=== PATIENT | female | born 1995 | race Caucasian/White ===

== ENCOUNTER 2023-04-03 13:44 | Emergency (ER) | payer OTHER, MEDICAID, SELFPAY ==
[2023-04-03] VITALS (101 sets, daily range): BP systolic 105–160; BP diastolic 56–83; PULSE 96–158; RESP 0–49; TEMP 37.2–37.5; O2SAT 81–99; BMI 50.1
[2023-04-03] MEDS: LORazepam 2 MG/ML INJ (13:55)
--- NOTE | 2023-04-03 13:55 | PC.NURSE ---
Addendum entered by Bryon Garcia R.N. 04/03/23 17:28: Pt arguing with provider and yells Let me up, I just need to walk around because of my lungs. I have done this before, let me walk around and i'll be better! Pt screamed multiple foul words. Original Note: EMS presents with patient who is confused, tachycardic, having previously been restrained during transport. Pt oxygen dropped to 82% room air after removing her oxygen. Patient is refusing to wear a nonrebreather, her face is purple and she rips off her mask. Provider at bedside and informed Pt that she cannot make appropriate decisions for herself regarding her oxygen at this time. Patient was combative requiring 5 staff members to restrain her in order to apply a non rebreather. Patients o2 increased to 92% on 15L nonrebreather.
--- NOTE | 2023-04-03 13:55 | PC.NURSE ---
Patient has bite gamez on her tongue with small amount of bleeding which is now controlled.
[2023-04-03] MEDS: LORazepam 2 MG/ML INJ 1 MG IV (13:59)
--- NOTE | 2023-04-03 13:59 | DI.RAD.S_ITS ---
PROCEDURE: XR CHEST 1V INDICATIONS: hypoxia TECHNIQUE: One view of the chest was acquired. COMPARISON: None. FINDINGS: Surgical changes and devices: None. Lungs and pleura: Diffuse airspace opacities of the bilateral hemithoraces. No pneumothorax or substantial pleural effusion. Mediastinum: Mediastinal contours appear normal. Heart size is normal. Bones and chest wall: No suspicious bony lesions. Overlying soft tissues appear unremarkable. IMPRESSION: Diffuse ill-defined airspace opacities of the bilateral hemithoraces which may represent pulmonary edema, pulmonary hemorrhage, or infectious/inflammatory process. Dictated by: Omar Mcintosh M.D. on 04/03/2023 at 13:30 Approved by: Omar Mcintosh M.D. on 04/03/2023 at 13:31
--- NOTE | 2023-04-03 13:59 | ED.SEIZURE ---
HPI - Seizure <DO Maximo Wagner Last Filed: 04/06/23 07:53> General Chief Complaint: Seizure Stated Complaint: 3 seizure last 24 hours Time Seen by Provider: 04/03/23 13:59 History of Present Illness HPI Narrative: Patient is a 27-year-old female history of connective tissue disorder, seizure disorder but not on any seizure medications presenting today with seizures. Mom reports that she had a seizure last night. 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 She is been complaining of some allergy like symptoms some chest congestion but no fever chills. Today she had seizure which mom did not witness but she did call her mom afterwards mom came over mom witnessed seizure lasting about 2 minutes. She reports stiffness in the extremities foaming at the mouth unresponsiveness. She says she was a little confused for about 15 minutes afterwards. EMS arrived she was more awake alert and talking. Patient seem to be at her baseline mental status for about 40 minutes and then she had another witnessed seizure by EMS. She required 5 mg total of Versed IM which did stop her seizure. Now in the ED she is quite combative but obviously hypoxic and. O2 is 78% is ripping off oxygen. Related Data Home Medications Medication Instructions Recorded Confirmed albuterol sulfate 90 mcg/actuation 2 puff inhalation Q6H PRN 06/02/20 06/02/20 aerosol inhaler Previous Rx's Medication Instructions Recorded silver sulfadiazine 1 % topical 1 applictn topical BID PRN wound 06/02/20 cream (Silvadene) healing #25 grams levetiracetam 1,000 mg tablet 1,000 mg PO BID #60 tabs 04/04/23 (Keppra) levofloxacin 750 mg tablet 750 mg PO DAILY 4 days #4 tabs 04/04/23 Allergies Allergy/AdvReac Type Severity Reaction Status Date / Time cefuroxime [From Ceftin] Allergy Intermediate unknown, Verified 06/02/20 10:09 happened as a small child Sulfa (Sulfonamide AdvReac Mild GI upset Verified 06/02/20 10:09 Antibiotics) Review of Systems <DO Maximo Wagner Last Filed: 04/06/23 07:53> Review of Systems ROS Unobtainable: All systems reviewed & are unremarkable except as noted in HPI and below Patient History <DO Maximo Wagner Last Filed: 04/06/23 07:53> Social History Smoking Status: Former smoker Smoking Status: Former smoker Exam <Keyonna Zelaya DO - Last Filed: 04/06/23 07:53> Initial Vital Signs Initial Vital Signs: Vital Signs Pulse Rate 122 H 04/03/23 14:05 Pulse Oximetry 95 04/03/23 14:05 Oxygen Delivery Method Non -Rebreather 04/03/23 14:05 Oxygen Flow Rate 15 04/03/23 14:05 GENERAL: Morbidly obese 27-year-old female combative, cyanotic in the face HEENT: Head atraumatic,EOMI, pupils reactive, face symmetric, moist mucous membranes CARDIOVASCULAR: Regular rate and rhythm without murmurs, rubs or gallops. RESPIRATORY: Decreased breath sounds bilaterally ABDOMEN: Soft, nontender. Normoactive bowel sounds all 4 quadrants. No guarding or rebound. EXTREMITIES: Normal range of motion, no clubbing or edema. Neurovascularly intact NEUROLOGICAL: Alert and oriented x2, moving all extremities SKIN: Warm, dry, no laceration, no petechiae, no rashes or lesions. <Vick Jacinto DO - Last Filed: 04/04/23 07:48> Initial Vital Signs Initial Vital Signs: Vital Signs Pulse Rate 122 H 04/03/23 14:05 Pulse Oximetry 95 04/03/23 14:05 Oxygen Delivery Method Non -Rebreather 04/03/23 14:05 Oxygen Flow Rate 15 04/03/23 14:05 Course <Keyonna Zelaya DO - Last Filed: 04/06/23 07:53> Orders Ordered: Discontinued Medications Etomidate (Etomidate 2 Mg/Ml 10 Ml Vial) 15 mg IV NOW ONE Stop: 04/03/23 14:33 Last Admin: 04/03/23 18:25 Dose: Not Given Documented By: JASON Sodium Chloride (Normal Saline 0.9%) 1,000 mls @ 150 mls/hr IV CONT KAROL Last Infusion: 04/03/23 17:12 Dose: 0 mls/hr Documented By: Infusion: 04/03/23 15:34 Dose: 999 mls/hr Documented By: Admin: 04/03/23 14:10 Dose: 150 mls/hr Documented By: EDWIN Propofol (Propofol) 1,000 mg in 100 mls @ 4.096 mls/hr IV TITRATE KAROL; Protocol Last Admin: 04/03/23 18:26 Dose: Not Given Documented By: SPF Fentanyl 1,000 mcg/ Dextrose 250 mls @ 23.893 mls/hr IV TITRATE KAROL; Protocol Last Admin: 04/03/23 18:26 Dose: Not Given Documented By: SPF Piperacillin Sod/Tazobactam (Sod 4.5 gm/ Sodium Chloride) 100 mls @ 200 mls/hr IV NOW ONE Stop: 04/03/23 15:16 Last Infusion: 04/03/23 16:15 Dose: 0 mls/hr Documented By: Infusion: 04/03/23 16:05 Dose: 200 mls/hr Documented By: Infusion: 04/03/23 15:37 Dose: 0 mls/hr Documented By: [facility] Admin: 04/03/23 15:37 Dose: 200 mls/hr Documented By: SPF Vancomycin HCl/Dextrose (Vancomycin) 2,000 mg in 400 mls @ 200 mls/hr IV NOW ONE Stop: 04/03/23 17:16 Last Infusion: 04/03/23 19:15 Dose: 0 mls/hr Documented By: Infusion: 04/03/23 19:01 Dose: 200 mls/hr Documented By: Admin: 04/03/23 16:45 Dose: 200 mls/hr Documented By: SPF Sodium Chloride (Normal Saline 0.9%) 1,000 mls @ 1,000 mls/hr IV BOLUS ONE Stop: 04/03/23 16:20 Last Infusion: 04/03/23 23:55 Dose: 0 mls/hr Documented By: Admin: 04/03/23 17:13 Dose: 150 mls/hr Documented By: SPF Levetiracetam 1,000 mg/ Sodium (Chloride) 110 mls @ 440 mls/hr IV NOW ONE Stop: 04/03/23 18:27 Last Infusion: 04/03/23 19:33 Dose: 0 mls/hr Documented By: Admin: 04/03/23 19:07 Dose: 440 mls/hr Documented By: SPF Levetiracetam 1,000 mg/ Sodium (Chloride) 110 mls @ 440 mls/hr IV BID [facility] Levetiracetam (Levetiracetam 250 Mg Tablet) 1,000 mg PO NOW ONE Stop: 04/04/23 06:25 Last Admin: 04/04/23 06:37 Dose: 1,000 mg Documented By: GC Levofloxacin (Levofloxacin 250 Mg Tablet) 500 mg PO NOW ONE Stop: 04/04/23 09:01 Last Admin: 04/04/23 07:50 Dose: 500 mg Documented By: NR Lorazepam (Lorazepam 2 Mg/Ml Inj) 1 mg IV NOW ONE Stop: 04/03/23 14:00 Last Admin: 04/03/23 13:59 Dose: 1 mg Documented By: RLS Lorazepam (Lorazepam 2 Mg/Ml Inj) 1 mg IV NOW ONE Stop: 04/03/23 14:22 Last Admin: 04/03/23 14:36 Dose: Not Given Documented By: RLS Lorazepam (Lorazepam 2 Mg/Ml Inj) 2 mg IV NOW ONE Stop: 04/03/23 18:35 Last Admin: 04/03/23 18:40 Dose: 2 mg Documented By: SPF Succinylcholine Chloride (Succinylcholine 200 Mg/10 Ml Vial) 70 mg IV NOW ONE Stop: 04/03/23 14:35 Last Admin: 04/03/23 18:25 Dose: Not Given Documented By: SPF Vital Signs Vital signs: Vital Signs - 8 hr 04/04/23 01:13 04/04/23 00:00 04/04/23 00:00 Pulse Rate 101 H Respiratory Rate 23 Blood Pressure 120/76 Pulse Oximetry 96 Oxygen Delivery Method Nasal Cannula High Flow Nasal Cannula Oxygen Flow Rate 3 40 Fraction of Inspired Oxygen 04/04/23 00:30 04/04/23 01:00 04/04/23 01:30 Pulse Rate 102 H 106 H 109 H Respiratory Rate 27 H 34 H 27 H Blood Pressure Pulse Oximetry 95 92 93 Oxygen Delivery Method Nasal Cannula Oxygen Flow Rate 2 Fraction of Inspired Oxygen 04/04/23 02:00 04/04/23 02:00 04/04/23 02:30 Pulse Rate 100 H 101 H Respiratory Rate 34 H 35 H Blood Pressure 134/85 Pulse Oximetry 92 93 Oxygen Delivery Method Nasal Cannula Oxygen Flow Rate 2 Fraction of Inspired Oxygen 04/04/23 03:00 04/04/23 03:30 04/04/23 04:00 Pulse Rate 106 H 99 H 106 H Respiratory Rate 31 H 30 H 35 H Blood Pressure Pulse Oximetry 95 92 92 Oxygen Delivery Method Nasal Cannula Nasal Cannula Nasal Cannula Oxygen Flow Rate 2 2 2 Fraction of Inspired Oxygen 04/04/23 04:30 04/04/23 05:00 04/04/23 05:30 Pulse Rate 105 H 104 H 107 H Respiratory Rate 32 H 32 H 21 Blood Pressure Pulse Oximetry 94 92 95 Oxygen Delivery Method Nasal Cannula Nasal Cannula Nasal Cannula Oxygen Flow Rate 2 2 2 Fraction of Inspired Oxygen 04/04/23 06:25 Pulse Rate 100 H Respiratory Rate 28 H Blood Pressure Pulse Oximetry 92 Oxygen Delivery Method Nasal Cannula Oxygen Flow Rate 2 Fraction of Inspired Oxygen 28 <Vick Jacinto DO - Last Filed: 04/04/23 07:48> Orders Ordered: Discontinued Medications Etomidate (Etomidate 2 Mg/Ml 10 Ml Vial) 15 mg IV NOW ONE Stop: 04/03/23 14:33 Last Admin: 04/03/23 18:25 Dose: Not Given Documented By: SPF Sodium Chloride (Normal Saline 0.9%) 1,000 mls @ 150 mls/hr IV CONT KAROL Last Infusion: 04/03/23 17:12 Dose: 0 mls/hr Documented By: Infusion: 04/03/23 15:34 Dose: 999 mls/hr Documented By: [facility] Admin: 04/03/23 14:10 Dose: 150 mls/hr Documented By: EDWIN Propofol (Propofol) 1,000 mg in 100 mls @ 4.096 mls/hr IV TITRATE KAROL; Protocol Last Admin: 04/03/23 18:26 Dose: Not Given Documented By: SPF Fentanyl 1,000 mcg/ Dextrose 250 mls @ 23.893 mls/hr IV TITRATE KAROL; Protocol Last Admin: 04/03/23 18:26 Dose: Not Given Documented By: SPF Piperacillin Sod/Tazobactam (Sod 4.5 gm/ Sodium Chloride) 100 mls @ 200 mls/hr IV NOW ONE Stop: 04/03/23 15:16 Last Infusion: 04/03/23 16:15 Dose: 0 mls/hr Documented By: Infusion: 04/03/23 16:05 Dose: 200 mls/hr Documented By: Infusion: 04/03/23 15:37 Dose: 0 mls/hr Documented By: [facility] Admin: 04/03/23 15:37 Dose: 200 mls/hr Documented By: SPF Vancomycin HCl/Dextrose (Vancomycin) 2,000 mg in 400 mls @ 200 mls/hr IV NOW ONE Stop: 04/03/23 17:16 Last Infusion: 04/03/23 19:15 Dose: 0 mls/hr Documented By: Infusion: 04/03/23 19:01 Dose: 200 mls/hr Documented By: Admin: 04/03/23 16:45 Dose: 200 mls/hr Documented By: SPF Sodium Chloride (Normal Saline 0.9%) 1,000 mls @ 1,000 mls/hr IV BOLUS ONE Stop: 04/03/23 16:20 Last Infusion: 04/03/23 23:55 Dose: 0 mls/hr Documented By: Admin: 04/03/23 17:13 Dose: 150 mls/hr Documented By: SPF Levetiracetam 1,000 mg/ Sodium (Chloride) 110 mls @ 440 mls/hr IV NOW ONE Stop: 04/03/23 18:27 Last Infusion: 04/03/23 19:33 Dose: 0 mls/hr Documented By: Admin: 04/03/23 19:07 Dose: 440 mls/hr Documented By: SPF Levetiracetam 1,000 mg/ Sodium (Chloride) 110 mls @ 440 mls/hr IV BID [facility] Levetiracetam (Levetiracetam 250 Mg Tablet) 1,000 mg PO NOW ONE Stop: 04/04/23 06:25 Last Admin: 04/04/23 06:37 Dose: 1,000 mg Documented By: GC Levofloxacin (Levofloxacin 250 Mg Tablet) 500 mg PO NOW ONE Stop: 04/04/23 09:01 Last Admin: 04/04/23 07:50 Dose: 500 mg Documented By: NR Lorazepam (Lorazepam 2 Mg/Ml Inj) 1 mg IV NOW ONE Stop: 04/03/23 14:00 Last Admin: 04/03/23 13:59 Dose: 1 mg Documented By: RLS Lorazepam (Lorazepam 2 Mg/Ml Inj) 1 mg IV NOW ONE Stop: 04/03/23 14:22 Last Admin: 04/03/23 14:36 Dose: Not Given Documented By: RLS Lorazepam (Lorazepam 2 Mg/Ml Inj) 2 mg IV NOW ONE Stop: 04/03/23 18:35 Last Admin: 04/03/23 18:40 Dose: 2 mg Documented By: SPF Succinylcholine Chloride (Succinylcholine 200 Mg/10 Ml Vial) 70 mg IV NOW ONE Stop: 04/03/23 14:35 Last Admin: 04/03/23 18:25 Dose: Not Given Documented By: SPF Vital Signs Vital signs: Vital Signs - 8 hr 04/04/23 01:13 04/04/23 00:00 04/04/23 00:00 Pulse Rate 101 H Respiratory Rate 23 Blood Pressure 120/76 Pulse Oximetry 96 Oxygen Delivery Method Nasal Cannula High Flow Nasal Cannula Oxygen Flow Rate 3 40 Fraction of Inspired Oxygen 04/04/23 00:30 04/04/23 01:00 04/04/23 01:30 Pulse Rate 102 H 106 H 109 H Respiratory Rate 27 H 34 H 27 H Blood Pressure Pulse Oximetry 95 92 93 Oxygen Delivery Method Nasal Cannula Oxygen Flow Rate 2 Fraction of Inspired Oxygen 04/04/23 02:00 04/04/23 02:00 04/04/23 02:30 Pulse Rate 100 H 101 H Respiratory Rate 34 H 35 H Blood Pressure 134/85 Pulse Oximetry 92 93 Oxygen Delivery Method Nasal Cannula Oxygen Flow Rate 2 Fraction of Inspired Oxygen 04/04/23 03:00 04/04/23 03:30 04/04/23 04:00 Pulse Rate 106 H 99 H 106 H Respiratory Rate 31 H 30 H 35 H Blood Pressure Pulse Oximetry 95 92 92 Oxygen Delivery Method Nasal Cannula Nasal Cannula Nasal Cannula Oxygen Flow Rate 2 2 2 Fraction of Inspired Oxygen 04/04/23 04:30 04/04/23 05:00 04/04/23 05:30 Pulse Rate 105 H 104 H 107 H Respiratory Rate 32 H 32 H 21 Blood Pressure Pulse Oximetry 94 92 95 Oxygen Delivery Method Nasal Cannula Nasal Cannula Nasal Cannula Oxygen Flow Rate 2 2 2 Fraction of Inspired Oxygen 04/04/23 06:25 Pulse Rate 100 H Respiratory Rate 28 H Blood Pressure Pulse Oximetry 92 Oxygen Delivery Method Nasal Cannula Oxygen Flow Rate 2 Fraction of Inspired Oxygen 28 MDM - Seizure <Keyonna Zelaya, - Last Filed: 04/06/23 07:53> Lab Data 04/03/23 14:02 04/03/23 14:02 Labs: Lab Results 04/03/23 04/03/23 04/03/23 Range/Units 14:02 14:02 14:02 WBC (4.5-11.0) X10^3/uL RBC (4.0-5.2) X10^6/uL Hgb (12.0-16.0) g/dL Hct (36-46) % MCV (80-100) fL MCH (26-34) PG MCHC (30-36) % RDW (11.6-14.8) % Plt Count (150-400) X10^3/uL Neut % (Auto) (50-75) % Lymph % (Auto) (25-40) % [place] % (Auto) (3-14) % Eos % (Auto) (2-4) % Baso % (Auto) (0-2) % Neut # (Auto) (8537-3314) /uL Lymph # (Auto) (2719-3059) /uL [place] # (Auto) (0-900) /uL Eos # (Auto) (0-450) /uL Baso # (Auto) (0-100) /uL PT 13.9 H (10.1-12.7) SECONDS INR 1.2 (0.9-1.3) APTT 29 (26-36) SECONDS ABG pH (7.35-7.45) ABG pCO2 (35-45) mmHg ABG pO2 (80-100) mmHg ABG HCO3 (23-27) mmol/L ABG Total CO2 (23-27) mmol/L ABG O2 Saturation (95-100) % ABG Base Excess (-2-3) mmol/L FiO2 Sodium (137-145) mmol/L Potassium (3.4-5.1) mmol/L Chloride (98-107) mmol/L Carbon Dioxide (22-32) mmol/L BUN (7-17) mg/dL Creatinine (0.52-1.04) mg/dL Estimated GFR (>60) mL/min BUN/Creatinine Ratio (6-22) Glucose (70-100) mg/dL Lactate 6.5 H* (0.7-2.1) mmol/L Calcium (8.4-10.2) mg/dL Total Bilirubin (0.2-1.3) mg/dL AST (14-36) IU/L ALT (<35) IU/L Alkaline Phosphatase (38-126) U/L Total Creatine Kinase (30-135) U/L Troponin I (0.01-0.034) ng/mL NT-Pro-B Natriuret Pep (<125) pg/mL Total Protein (6.3-8.2) g/dL Albumin (3.5-5.0) g/dL Globulin (1.7-4.1) g/dL Albumin/Globulin Ratio (1.0-2.8) Lipase (23-300) U/L Procalcitonin < 0.03 (<0.5) ng/mL Prolactin 107.4 H (3.0-18.6) ng/mL Serum , Qual (Negative) Urine Color Urine Appearance Urine pH (4.5-8.0) Ur Specific [place] (1.000-1.035) Urine Protein (Negative) Urine Glucose (UA) (Negative) g/dL Urine Ketones (NEGATIVE) Urine Occult Blood (Negative) Urine Nitrate (Negative) Urine Bilirubin (NEGATIVE) Urine Urobilinogen (0.2) E.U./dL Ur Leukocyte Esterase (NEGATIVE) Urine RBC (0-5/HPF) Urine WBC (0-5/HPF) Ur Squamous Epith Cells (0-5/HPF) Uric Acid Crystals (None) Urine Bacteria (None) Ur Culture Indicated? U Opiates 300ng/mL cut (Negative) Ur Oxycodone Screen (Negative) Urine Methadone Screen (Negative) Ur Barbiturates Screen (Negative) U Tricyclic Antidepress (Negative) Ur Phencyclidine Scrn (Negative) Ur Amphetamines Screen (Negative) U Methamphetamines Scrn (Negative) Ur MDMA Scrn (Ecstasy) (Negative) U Benzodiazepines Scrn (Negative) Urine Cocaine Screen (Negative) U Marijuana (THC) Screen (Negative) Chlamy pneumoniae PCR (Not Detect) Adenovirus (PCR) (Not Detect) B. pertussis DNA (PCR) (Not Detecte) B.parapertussis DNA PCR (Not Detecte) Coronavirus OC43 (PCR) (Not Detect) Coronavirus HKU1 (PCR) (Not Detect) Coronavirus 229E (PCR) (Not Detect) SARS-CoV-2 (PCR) (Not Detecte) Coronavirus NL63 (PCR) (Not Detect) Human Metapneumovir PCR (Not Detect) Influenza Type A (PCR) (Not Detect) Influenza Type B (PCR) (Not Detect) M. pneumoniae (PCR) (Not Detect) Parainfluenza 1 (PCR) (Not Detect) Parainfluenza 2 (PCR) (Not Detect) Parainfluenza 3 (PCR) (Not Detect) Parainfluenza 4 (PCR) (Not Detect) RSV (PCR) (Not Detect) Entero/Rhino (PCR) (Not Detect) 04/03/23 04/03/23 04/03/23 Range/Units 14:02 14:02 14:02 WBC 24.7 H (4.5-11.0) X10^3/uL RBC 5.03 (4.0-5.2) X10^6/uL Hgb 14.9 (12.0-16.0) g/dL Hct 44.1 (36-46) % MCV 87.6 (80-100) fL MCH 29.6 (26-34) PG MCHC 33.8 (30-36) % RDW 13.0 (11.6-14.8) % Plt Count 342 (150-400) X10^3/uL Neut % (Auto) 90.2 H (50-75) % Lymph % (Auto) 4.6 L (25-40) % [place] % (Auto) 4.8 (3-14) % Eos % (Auto) 0.2 L (2-4) % Baso % (Auto) 0.2 (0-2) % Neut # (Auto) 96723 H (1163-0626) /uL Lymph # (Auto) 1100 (3120-9559) /uL [place] # (Auto) 1200 H (0-900) /uL Eos # (Auto) 0 (0-450) /uL Baso # (Auto) 100 (0-100) /uL PT (10.1-12.7) SECONDS INR (0.9-1.3) APTT (26-36) SECONDS ABG pH (7.35-7.45) ABG pCO2 (35-45) mmHg ABG pO2 (80-100) mmHg ABG HCO3 (23-27) mmol/L ABG Total CO2 (23-27) mmol/L ABG O2 Saturation (95-100) % ABG Base Excess (-2-3) mmol/L FiO2 Sodium 137 (137-145) mmol/L Potassium 3.7 (3.4-5.1) mmol/L Chloride 104 (98-107) mmol/L Carbon Dioxide 16 L (22-32) mmol/L BUN 13 (7-17) mg/dL Creatinine 0.68 (0.52-1.04) mg/dL Estimated GFR > 60 (>60) mL/min BUN/Creatinine Ratio 19.1 (6-22) Glucose 164 H (70-100) mg/dL Lactate (0.7-2.1) mmol/L Calcium 8.7 (8.4-10.2) mg/dL Total Bilirubin 0.3 (0.2-1.3) mg/dL AST 27 (14-36) IU/L ALT 30 (<35) IU/L Alkaline Phosphatase 81 (38-126) U/L Total Creatine Kinase 162 H (30-135) U/L Troponin I 0.050 H (0.01-0.034) ng/mL NT-Pro-B Natriuret Pep (<125) pg/mL Total Protein 7.6 (6.3-8.2) g/dL Albumin 4.3 (3.5-5.0) g/dL Globulin 3.3 (1.7-4.1) g/dL Albumin/Globulin Ratio 1.3 (1.0-2.8) Lipase 68 (23-300) U/L Procalcitonin (<0.5) ng/mL Prolactin (3.0-18.6) ng/mL Serum , Qual Negative (Negative) Urine Color Urine Appearance Urine pH (4.5-8.0) Ur Specific [place] (1.000-1.035) Urine Protein (Negative) Urine Glucose (UA) (Negative) g/dL Urine Ketones (NEGATIVE) Urine Occult Blood (Negative) Urine Nitrate (Negative) Urine Bilirubin (NEGATIVE) Urine Urobilinogen (0.2) E.U./dL Ur Leukocyte Esterase (NEGATIVE) Urine RBC (0-5/HPF) Urine WBC (0-5/HPF) Ur Squamous Epith Cells (0-5/HPF) Uric Acid Crystals (None) Urine Bacteria (None) Ur Culture Indicated? U Opiates 300ng/mL cut (Negative) Ur Oxycodone Screen (Negative) Urine Methadone Screen (Negative) Ur Barbiturates Screen (Negative) U Tricyclic Antidepress (Negative) Ur Phencyclidine Scrn (Negative) Ur Amphetamines Screen (Negative) U Methamphetamines Scrn (Negative) Ur MDMA Scrn (Ecstasy) (Negative) U Benzodiazepines Scrn (Negative) Urine Cocaine Screen (Negative) U Marijuana (THC) Screen (Negative) Chlamy pneumoniae PCR (Not Detect) Adenovirus (PCR) (Not Detect) B. pertussis DNA (PCR) (Not Detecte) B.parapertussis DNA PCR (Not Detecte) Coronavirus OC43 (PCR) (Not Detect) Coronavirus HKU1 (PCR) (Not Detect) Coronavirus 229E (PCR) (Not Detect) SARS-CoV-2 (PCR) (Not Detecte) Coronavirus NL63 (PCR) (Not Detect) Human Metapneumovir PCR (Not Detect) Influenza Type A (PCR) (Not Detect) Influenza Type B (PCR) (Not Detect) M. pneumoniae (PCR) (Not Detect) Parainfluenza 1 (PCR) (Not Detect) Parainfluenza 2 (PCR) (Not Detect) Parainfluenza 3 (PCR) (Not Detect) Parainfluenza 4 (PCR) (Not Detect) RSV (PCR) (Not Detect) Entero/Rhino (PCR) (Not Detect) 04/03/23 04/03/23 04/03/23 Range/Units 14:02 14:02 14:45 WBC (4.5-11.0) X10^3/uL RBC (4.0-5.2) X10^6/uL Hgb (12.0-16.0) g/dL Hct (36-46) % MCV (80-100) fL MCH (26-34) PG MCHC (30-36) % RDW (11.6-14.8) % Plt Count (150-400) X10^3/uL Neut % (Auto) (50-75) % Lymph % (Auto) (25-40) % [place] % (Auto) (3-14) % Eos % (Auto) (2-4) % Baso % (Auto) (0-2) % Neut # (Auto) (9367-5914) /uL Lymph # (Auto) (0401-0729) /uL [place] # (Auto) (0-900) /uL Eos # (Auto) (0-450) /uL Baso # (Auto) (0-100) /uL PT (10.1-12.7) SECONDS INR (0.9-1.3) APTT (26-36) SECONDS ABG pH 7.36 (7.35-7.45) ABG pCO2 38.0 (35-45) mmHg ABG pO2 67 L (80-100) mmHg ABG HCO3 21 L (23-27) mmol/L ABG Total CO2 22 L (23-27) mmol/L ABG O2 Saturation 92 L (95-100) % ABG Base Excess -4.0 L (-2-3) mmol/L FiO2 100 Sodium (137-145) mmol/L Potassium (3.4-5.1) mmol/L Chloride (98-107) mmol/L Carbon Dioxide (22-32) mmol/L BUN (7-17) mg/dL Creatinine (0.52-1.04) mg/dL Estimated GFR (>60) mL/min BUN/Creatinine Ratio (6-22) Glucose (70-100) mg/dL Lactate (0.7-2.1) mmol/L Calcium (8.4-10.2) mg/dL Total Bilirubin (0.2-1.3) mg/dL AST (14-36) IU/L ALT (<35) IU/L Alkaline Phosphatase (38-126) U/L Total Creatine Kinase (30-135) U/L Troponin I (0.01-0.034) ng/mL NT-Pro-B Natriuret Pep 170 H (<125) pg/mL Total Protein (6.3-8.2) g/dL Albumin (3.5-5.0) g/dL Globulin (1.7-4.1) g/dL Albumin/Globulin Ratio (1.0-2.8) Lipase (23-300) U/L Procalcitonin (<0.5) ng/mL Prolactin (3.0-18.6) ng/mL Serum , Qual (Negative) Urine Color Urine Appearance Urine pH (4.5-8.0) Ur Specific [place] (1.000-1.035) Urine Protein (Negative) Urine Glucose (UA) (Negative) g/dL Urine Ketones (NEGATIVE) Urine Occult Blood (Negative) Urine Nitrate (Negative) Urine Bilirubin (NEGATIVE) Urine Urobilinogen (0.2) E.U./dL Ur Leukocyte Esterase (NEGATIVE) Urine RBC (0-5/HPF) Urine WBC (0-5/HPF) Ur Squamous Epith Cells (0-5/HPF) Uric Acid Crystals (None) Urine Bacteria (None) Ur Culture Indicated? U Opiates 300ng/mL cut (Negative) Ur Oxycodone Screen (Negative) Urine Methadone Screen (Negative) Ur Barbiturates Screen (Negative) U Tricyclic Antidepress (Negative) Ur Phencyclidine Scrn (Negative) Ur Amphetamines Screen (Negative) U Methamphetamines Scrn (Negative) Ur MDMA Scrn (Ecstasy) (Negative) U Benzodiazepines Scrn (Negative) Urine Cocaine Screen (Negative) U Marijuana (THC) Screen (Negative) Chlamy pneumoniae PCR Not detected (Not Detect) Adenovirus (PCR) Not detected (Not Detect) B. pertussis DNA (PCR) Not detected (Not Detecte) B.parapertussis DNA PCR Not detected (Not Detecte) Coronavirus OC43 (PCR) Not detected (Not Detect) Coronavirus HKU1 (PCR) Not detected (Not Detect) Coronavirus 229E (PCR) Not detected (Not Detect) SARS-CoV-2 (PCR) Not detected (Not Detecte) Coronavirus NL63 (PCR) Not detected (Not Detect) Human Metapneumovir PCR Not detected (Not Detect) Influenza Type A (PCR) Not detected (Not Detect) Influenza Type B (PCR) Not detected (Not Detect) M. pneumoniae (PCR) Not detected (Not Detect) Parainfluenza 1 (PCR) Not detected (Not Detect) Parainfluenza 2 (PCR) Not detected (Not Detect) Parainfluenza 3 (PCR) Not detected (Not Detect) Parainfluenza 4 (PCR) Not detected (Not Detect) RSV (PCR) Not detected (Not Detect) Entero/Rhino (PCR) Not detected (Not Detect) 04/03/23 04/03/23 04/03/23 Range/Units 16:41 18:39 18:39 WBC (4.5-11.0) X10^3/uL RBC (4.0-5.2) X10^6/uL Hgb (12.0-16.0) g/dL Hct (36-46) % MCV (80-100) fL MCH (26-34) PG MCHC (30-36) % RDW (11.6-14.8) % Plt Count (150-400) X10^3/uL Neut % (Auto) (50-75) % Lymph % (Auto) (25-40) % [place] % (Auto) (3-14) % Eos % (Auto) (2-4) % Baso % (Auto) (0-2) % Neut # (Auto) (8889-1164) /uL Lymph # (Auto) (6781-3642) /uL [place] # (Auto) (0-900) /uL Eos # (Auto) (0-450) /uL Baso # (Auto) (0-100) /uL PT (10.1-12.7) SECONDS INR (0.9-1.3) APTT (26-36) SECONDS ABG pH (7.35-7.45) ABG pCO2 (35-45) mmHg ABG pO2 (80-100) mmHg ABG HCO3 (23-27) mmol/L ABG Total CO2 (23-27) mmol/L ABG O2 Saturation (95-100) % ABG Base Excess (-2-3) mmol/L FiO2 Sodium (137-145) mmol/L Potassium (3.4-5.1) mmol/L Chloride (98-107) mmol/L Carbon Dioxide (22-32) mmol/L BUN (7-17) mg/dL Creatinine (0.52-1.04) mg/dL Estimated GFR (>60) mL/min BUN/Creatinine Ratio (6-22) Glucose (70-100) mg/dL Lactate 0.8 (0.7-2.1) mmol/L Calcium (8.4-10.2) mg/dL Total Bilirubin (0.2-1.3) mg/dL AST (14-36) IU/L ALT (<35) IU/L Alkaline Phosphatase (38-126) U/L Total Creatine Kinase (30-135) U/L Troponin I (0.01-0.034) ng/mL NT-Pro-B Natriuret Pep (<125) pg/mL Total Protein (6.3-8.2) g/dL Albumin (3.5-5.0) g/dL Globulin (1.7-4.1) g/dL Albumin/Globulin Ratio (1.0-2.8) Lipase (23-300) U/L Procalcitonin (<0.5) ng/mL Prolactin (3.0-18.6) ng/mL Serum , Qual (Negative) Urine Color Yellow Urine Appearance Cloudy Urine pH 5.0 (4.5-8.0) Ur Specific [place] 1.015 (1.000-1.035) Urine Protein Negative (Negative) Urine Glucose (UA) Negative (Negative) g/dL Urine Ketones Trace H (NEGATIVE) Urine Occult Blood Trace-intact (Negative) Urine Nitrate Negative (Negative) Urine Bilirubin Negative (NEGATIVE) Urine Urobilinogen 0.2 (0.2) E.U./dL Ur Leukocyte Esterase Negative (NEGATIVE) Urine RBC None seen (0-5/HPF) Urine WBC None seen (0-5/HPF) Ur Squamous Epith Cells None seen (0-5/HPF) Uric Acid Crystals Many H (None) Urine Bacteria None seen (None) Ur Culture Indicated? Cult not indicated U Opiates 300ng/mL cut Negative (Negative) Ur Oxycodone Screen Negative (Negative) Urine Methadone Screen Negative (Negative) Ur Barbiturates Screen Negative (Negative) U Tricyclic Antidepress Negative (Negative) Ur Phencyclidine Scrn Negative (Negative) Ur Amphetamines Screen Negative (Negative) U Methamphetamines Scrn Negative (Negative) Ur MDMA Scrn (Ecstasy) Negative (Negative) U Benzodiazepines Scrn Positive H (Negative) Urine Cocaine Screen Negative (Negative) U Marijuana (THC) Screen Positive H (Negative) Chlamy pneumoniae PCR (Not Detect) Adenovirus (PCR) (Not Detect) B. pertussis DNA (PCR) (Not Detecte) B.parapertussis DNA PCR (Not Detecte) Coronavirus OC43 (PCR) (Not Detect) Coronavirus HKU1 (PCR) (Not Detect) Coronavirus 229E (PCR) (Not Detect) SARS-CoV-2 (PCR) (Not Detecte) Coronavirus NL63 (PCR) (Not Detect) Human Metapneumovir PCR (Not Detect) Influenza Type A (PCR) (Not Detect) Influenza Type B (PCR) (Not Detect) M. pneumoniae (PCR) (Not Detect) Parainfluenza 1 (PCR) (Not Detect) Parainfluenza 2 (PCR) (Not Detect) Parainfluenza 3 (PCR) (Not Detect) Parainfluenza 4 (PCR) (Not Detect) RSV (PCR) (Not Detect) Entero/Rhino (PCR) (Not Detect) 04/04/23 04/04/23 Range/Units 07:20 07:20 WBC Cancelled (4.5-11.0) X10^3/uL RBC Cancelled (4.0-5.2) X10^6/uL Hgb Cancelled (12.0-16.0) g/dL Hct Cancelled (36-46) % MCV Cancelled (80-100) fL MCH Cancelled (26-34) PG MCHC Cancelled (30-36) % RDW Cancelled (11.6-14.8) % Plt Count Cancelled (150-400) X10^3/uL Neut % (Auto) Cancelled (50-75) % Lymph % (Auto) Cancelled (25-40) % [place] % (Auto) Cancelled (3-14) % Eos % (Auto) Cancelled (2-4) % Baso % (Auto) Cancelled (0-2) % Neut # (Auto) Cancelled (0108-4544) /uL Lymph # (Auto) Cancelled (9930-9619) /uL [place] # (Auto) Cancelled (0-900) /uL Eos # (Auto) Cancelled (0-450) /uL Baso # (Auto) Cancelled (0-100) /uL PT (10.1-12.7) SECONDS INR (0.9-1.3) APTT (26-36) SECONDS ABG pH (7.35-7.45) ABG pCO2 (35-45) mmHg ABG pO2 (80-100) mmHg ABG HCO3 (23-27) mmol/L ABG Total CO2 (23-27) mmol/L ABG O2 Saturation (95-100) % ABG Base Excess (-2-3) mmol/L FiO2 Sodium Cancelled (137-145) mmol/L Potassium Cancelled (3.4-5.1) mmol/L Chloride Cancelled (98-107) mmol/L Carbon Dioxide Cancelled (22-32) mmol/L BUN Cancelled (7-17) mg/dL Creatinine Cancelled (0.52-1.04) mg/dL Estimated GFR Cancelled (>60) mL/min BUN/Creatinine Ratio Cancelled (6-22) Glucose Cancelled (70-100) mg/dL Lactate (0.7-2.1) mmol/L Calcium Cancelled (8.4-10.2) mg/dL Total Bilirubin (0.2-1.3) mg/dL AST (14-36) IU/L ALT (<35) IU/L Alkaline Phosphatase (38-126) U/L Total Creatine Kinase (30-135) U/L Troponin I (0.01-0.034) ng/mL NT-Pro-B Natriuret Pep (<125) pg/mL Total Protein (6.3-8.2) g/dL Albumin (3.5-5.0) g/dL Globulin (1.7-4.1) g/dL Albumin/Globulin Ratio (1.0-2.8) Lipase (23-300) U/L Procalcitonin (<0.5) ng/mL Prolactin Cancelled (3.0-18.6) ng/mL Serum , Qual (Negative) Urine Color Urine Appearance Urine pH (4.5-8.0) Ur Specific [place] (1.000-1.035) Urine Protein (Negative) Urine Glucose (UA) (Negative) g/dL Urine Ketones (NEGATIVE) Urine Occult Blood (Negative) Urine Nitrate (Negative) Urine Bilirubin (NEGATIVE) Urine Urobilinogen (0.2) E.U./dL Ur Leukocyte Esterase (NEGATIVE) Urine RBC (0-5/HPF) Urine WBC (0-5/HPF) Ur Squamous Epith Cells (0-5/HPF) Uric Acid Crystals (None) Urine Bacteria (None) Ur Culture Indicated? U Opiates 300ng/mL cut (Negative) Ur Oxycodone Screen (Negative) Urine Methadone Screen (Negative) Ur Barbiturates Screen (Negative) U Tricyclic Antidepress (Negative) Ur Phencyclidine Scrn (Negative) Ur Amphetamines Screen (Negative) U Methamphetamines Scrn (Negative) Ur MDMA Scrn (Ecstasy) (Negative) U Benzodiazepines Scrn (Negative) Urine Cocaine Screen (Negative) U Marijuana (THC) Screen (Negative) Chlamy pneumoniae PCR (Not Detect) Adenovirus (PCR) (Not Detect) B. pertussis DNA (PCR) (Not Detecte) B.parapertussis DNA PCR (Not Detecte) Coronavirus OC43 (PCR) (Not Detect) Coronavirus HKU1 (PCR) (Not Detect) Coronavirus 229E (PCR) (Not Detect) SARS-CoV-2 (PCR) (Not Detecte) Coronavirus NL63 (PCR) (Not Detect) Human Metapneumovir PCR (Not Detect) Influenza Type A (PCR) (Not Detect) Influenza Type B (PCR) (Not Detect) M. pneumoniae (PCR) (Not Detect) Parainfluenza 1 (PCR) (Not Detect) Parainfluenza 2 (PCR) (Not Detect) Parainfluenza 3 (PCR) (Not Detect) Parainfluenza 4 (PCR) (Not Detect) RSV (PCR) (Not Detect) Entero/Rhino (PCR) (Not Detect) Point of Care Testing Glucose POC 119 Imaging Data Chest x-ray: Radiologist's Impression: PROCEDURE:? XR CHEST 1V ? INDICATIONS:? hypoxia ? TECHNIQUE:? One view of the chest was acquired.? ? COMPARISON:? None. ? FINDINGS:? ? Surgical changes and devices:? None.? ? Lungs and pleura:? Diffuse airspace opacities of the bilateral hemithoraces.? No pneumothorax or substantial pleural effusion. ? Mediastinum:? Mediastinal contours appear normal.? Heart size is normal.? ? Bones and chest wall:? No suspicious bony lesions.? Overlying soft tissues appear unremarkable.? ? IMPRESSION:? Diffuse ill-defined airspace opacities of the bilateral hemithoraces which may represent pulmonary edema, pulmonary hemorrhage, or infectious/inflammatory process. ? ? Dictated by: Omar Mcintosh M.D. on 04/03/2023 at 13:30 ? ? CT scan - head: Radiologist's Impression: PROCEDURE:? CT HEAD/BRAIN WO CON ? INDICATIONS:? seizure ? TECHNIQUE:? Noncontrast 4.5 mm thick angled axial sections acquired from the foramen magnum to the vertex, with coronal and sagittal reformats.? For radiation dose reduction, the following was used:? automated exposure control, adjustment of mA and/or kV according to patient size.? ? [facility], [facility], CT, CT ANGIO CHEST PE PROTOCOL, 04/03/2023, 15:41. ? FINDINGS:? Image quality:? This examination is limited by involuntary motion artifact.? Mild streak artifact can be seen through the skull base. ? CSF spaces:? Basal cisterns are patent.? No extra-axial fluid collections.? Ventricles are normal in size and shape.? ? Brain:? No midline shift.? No intracranial masses or hemorrhage.? Young-white matter interface is normal.? ? Skull and face:? Calvarium and visualized facial bones are intact, without suspicious lesions.? ? Sinuses:? Visualized sinuses and mastoids are clear.? IMPRESSION:? No significant noncontrast head CT abnormality is identified. ? ? Dictated by: Shaji Orellana M.D. on 04/03/2023 at 15:16 ? ? CT scan - chest: Radiologist's Impression: PROCEDURE:? CT ANGIO CHEST PE PROTOCOL ? INDICATIONS:? hypoxia ? TECHNIQUE:? After the administration of intravenous contrast, 2 mm thick sections acquired from the pulmonary apices to the posterior costophrenic angles.? 3-dimensional maximum intensity projection (MIP) coronal and sagittal reformats were then acquired through the thorax.? For radiation dose reduction, the following was used:? automated exposure control, adjustment of mA and/or kV according to patient size.? ? COMPARISON:? [facility], CT, CT HEAD/BRAIN WO CON, 04/03/2023, 15:41.? [facility], CR, XR CHEST 1V, 04/03/2023, 14:02. ? FINDINGS:? Image quality:? Limited by bolus timing.? Streak artifact can be seen through the upper abdomen. ? Pulmonary arteries:? The bolus of the contrast injection is suboptimal.? The main pulmonary artery measures approximately 155 Hounsfield units.? Pulmonary artery densities are greater than 250 Hounsfield units are considered to be ideal for evaluation of pulmonary embolism. ? However, no large or central pulmonary emboli are seen on these images.? No pulmonary emboli are seen more distally, although sensitivity for detection of such is limited on this study.? ? ? Lungs and pleura:? Prominent, poorly defined ground-glass opacities can be seen, which are primarily seen centrally and dependently.? No pleural effusions or pneumothorax.? Central and peripheral airways are patent.? ? Mediastinum:? Heart size is normal, without pericardial effusion.? No mediastinal or hilar adenopathy.? Thoracic aorta is normal in caliber and enhancement.? Esophagus is normal in caliber, without hiatal hernia.? ? Bones and chest wall:? No suspicious bony lesions.? Ribs and thoracic spine appear intact throughout.? Thyroid gland demonstrates no significant abnormality.? No axillary or supraclavicular adenopathy.? ? Abdomen:? Visualized upper abdominal solid organs appear normal in the early arterial phase of enhancement.? IMPRESSION:? Severe poorly defined opacities can be seen within both lungs.? These are worst centrally and dependently.? Pulmonary edema is suspected, although differential diagnosis includes prominent atypical infection, including COVID pneumonia. ? No large or central pulmonary embolism can be seen. ? ? Dictated by: Shaji Orellana M.D. on 04/03/2023 at 15:17 ? ? Approved by: Shaji Orellana M.D. on 04/03/2023 at 15:19 ? [facility] Narrative Medical decision making narrative: Patient 27-year-old female presenting today with postictal and seizure disorder however she is found to be quite hypoxic. She is extremely combative requiring Ativan and restraints initially. X-ray does show bilateral infiltrates. She is requiring 15 L non-rebreather ABG confirms hypoxia with a PO2 67 on the non-rebreather. Concern for underlying pneumonia. She has leukocytosis and a lactic acid. Lactic acid is 6.5 either related to sepsis or seizure. CT angio does not show pulmonary embolism. It does show severely poor defined opacities bilaterally worse centrally pulmonary edema is suspected. Ever atypical infection and COVID pneumonia are also possibilities. BNP does not support fluid overload. Sounds as though she is actually been having respiratory symptoms for a couple of days so I suspect more of a pneumonia. Her respiratory panel is negative. She continues to be restless and combative attempt high-flow nasal cannula which she reports hurts her nose. She is awake alert and responsive but competitive. Head CT is negative for any intracranial hemorrhage. I suspect a continuation of postictal. Mom reports that this is very abnormal behavior for her. She is covered with antibiotics for probable pneumonia. Discussed with mom possible need for intubation if she does not tolerate high-flow. Dr. Lofton, Neurology at Located within [facility] updated patient's symptoms test results this time agrees would benefit from antiseizure medication recommends Keppra 1000 mg twice daily. Unfortunately we do not have any ICU beds. Attempting to transfer patient. Patient signed out to Dr. Jacinto <Vick Jacinto DO - Last Filed: 04/04/23 07:48> Lab Data Labs: Lab Results 04/03/23 04/03/23 04/03/23 Range/Units 14:02 14:02 14:02 WBC (4.5-11.0) X10^3/uL RBC (4.0-5.2) X10^6/uL Hgb (12.0-16.0) g/dL Hct (36-46) % MCV (80-100) fL MCH (26-34) PG MCHC (30-36) % RDW (11.6-14.8) % Plt Count (150-400) X10^3/uL Neut % (Auto) (50-75) % Lymph % (Auto) (25-40) % [place] % (Auto) (3-14) % Eos % (Auto) (2-4) % Baso % (Auto) (0-2) % Neut # (Auto) (4412-4182) /uL Lymph # (Auto) (3651-8771) /uL [place] # (Auto) (0-900) /uL Eos # (Auto) (0-450) /uL Baso # (Auto) (0-100) /uL PT 13.9 H (10.1-12.7) SECONDS INR 1.2 (0.9-1.3) APTT 29 (26-36) SECONDS ABG pH (7.35-7.45) ABG pCO2 (35-45) mmHg ABG pO2 (80-100) mmHg ABG HCO3 (23-27) mmol/L ABG Total CO2 (23-27) mmol/L ABG O2 Saturation (95-100) % ABG Base Excess (-2-3) mmol/L FiO2 Sodium (137-145) mmol/L Potassium (3.4-5.1) mmol/L Chloride (98-107) mmol/L Carbon Dioxide (22-32) mmol/L BUN (7-17) mg/dL Creatinine (0.52-1.04) mg/dL Estimated GFR (>60) mL/min BUN/Creatinine Ratio (6-22) Glucose (70-100) mg/dL Lactate 6.5 H* (0.7-2.1) mmol/L Calcium (8.4-10.2) mg/dL Total Bilirubin (0.2-1.3) mg/dL AST (14-36) IU/L ALT (<35) IU/L Alkaline Phosphatase (38-126) U/L Total Creatine Kinase (30-135) U/L Troponin I (0.01-0.034) ng/mL NT-Pro-B Natriuret Pep (<125) pg/mL Total Protein (6.3-8.2) g/dL Albumin (3.5-5.0) g/dL Globulin (1.7-4.1) g/dL Albumin/Globulin Ratio (1.0-2.8) Lipase (23-300) U/L Procalcitonin < 0.03 (<0.5) ng/mL Prolactin 107.4 H (3.0-18.6) ng/mL Serum , Qual (Negative) Urine Color Urine Appearance Urine pH (4.5-8.0) Ur Specific [place] (1.000-1.035) Urine Protein (Negative) Urine Glucose (UA) (Negative) g/dL Urine Ketones (NEGATIVE) Urine Occult Blood (Negative) Urine Nitrate (Negative) Urine Bilirubin (NEGATIVE) Urine Urobilinogen (0.2) E.U./dL Ur Leukocyte Esterase (NEGATIVE) Urine RBC (0-5/HPF) Urine WBC (0-5/HPF) Ur Squamous Epith Cells (0-5/HPF) Uric Acid Crystals (None) Urine Bacteria (None) Ur Culture Indicated? U Opiates 300ng/mL cut (Negative) Ur Oxycodone Screen (Negative) Urine Methadone Screen (Negative) Ur Barbiturates Screen (Negative) U Tricyclic Antidepress (Negative) Ur Phencyclidine Scrn (Negative) Ur Amphetamines Screen (Negative) U Methamphetamines Scrn (Negative) Ur MDMA Scrn (Ecstasy) (Negative) U Benzodiazepines Scrn (Negative) Urine Cocaine Screen (Negative) U Marijuana (THC) Screen (Negative) Chlamy pneumoniae PCR (Not Detect) Adenovirus (PCR) (Not Detect) B. pertussis DNA (PCR) (Not Detecte) B.parapertussis DNA PCR (Not Detecte) Coronavirus OC43 (PCR) (Not Detect) Coronavirus HKU1 (PCR) (Not Detect) Coronavirus 229E (PCR) (Not Detect) SARS-CoV-2 (PCR) (Not Detecte) Coronavirus NL63 (PCR) (Not Detect) Human Metapneumovir PCR (Not Detect) Influenza Type A (PCR) (Not Detect) Influenza Type B (PCR) (Not Detect) M. pneumoniae (PCR) (Not Detect) Parainfluenza 1 (PCR) (Not Detect) Parainfluenza 2 (PCR) (Not Detect) Parainfluenza 3 (PCR) (Not Detect) Parainfluenza 4 (PCR) (Not Detect) RSV (PCR) (Not Detect) Entero/Rhino (PCR) (Not Detect) 04/03/23 04/03/23 04/03/23 Range/Units 14:02 14:02 14:02 WBC 24.7 H (4.5-11.0) X10^3/uL RBC 5.03 (4.0-5.2) X10^6/uL Hgb 14.9 (12.0-16.0) g/dL Hct 44.1 (36-46) % MCV 87.6 (80-100) fL MCH 29.6 (26-34) PG MCHC 33.8 (30-36) % RDW 13.0 (11.6-14.8) % Plt Count 342 (150-400) X10^3/uL Neut % (Auto) 90.2 H (50-75) % Lymph % (Auto) 4.6 L (25-40) % [place] % (Auto) 4.8 (3-14) % Eos % (Auto) 0.2 L (2-4) % Baso % (Auto) 0.2 (0-2) % Neut # (Auto) 22011 H (8958-9943) /uL Lymph # (Auto) 1100 (6084-9472) /uL [place] # (Auto) 1200 H (0-900) /uL Eos # (Auto) 0 (0-450) /uL Baso # (Auto) 100 (0-100) /uL PT (10.1-12.7) SECONDS INR (0.9-1.3) APTT (26-36) SECONDS ABG pH (7.35-7.45) ABG pCO2 (35-45) mmHg ABG pO2 (80-100) mmHg ABG HCO3 (23-27) mmol/L ABG Total CO2 (23-27) mmol/L ABG O2 Saturation (95-100) % ABG Base Excess (-2-3) mmol/L FiO2 Sodium 137 (137-145) mmol/L Potassium 3.7 (3.4-5.1) mmol/L Chloride 104 (98-107) mmol/L Carbon Dioxide 16 L (22-32) mmol/L BUN 13 (7-17) mg/dL Creatinine 0.68 (0.52-1.04) mg/dL Estimated GFR > 60 (>60) mL/min BUN/Creatinine Ratio 19.1 (6-22) Glucose 164 H (70-100) mg/dL Lactate (0.7-2.1) mmol/L Calcium 8.7 (8.4-10.2) mg/dL Total Bilirubin 0.3 (0.2-1.3) mg/dL AST 27 (14-36) IU/L ALT 30 (<35) IU/L Alkaline Phosphatase 81 (38-126) U/L Total Creatine Kinase 162 H (30-135) U/L Troponin I 0.050 H (0.01-0.034) ng/mL NT-Pro-B Natriuret Pep (<125) pg/mL Total Protein 7.6 (6.3-8.2) g/dL Albumin 4.3 (3.5-5.0) g/dL Globulin 3.3 (1.7-4.1) g/dL Albumin/Globulin Ratio 1.3 (1.0-2.8) Lipase 68 (23-300) U/L Procalcitonin (<0.5) ng/mL Prolactin (3.0-18.6) ng/mL Serum , Qual Negative (Negative) Urine Color Urine Appearance Urine pH (4.5-8.0) Ur Specific [place] (1.000-1.035) Urine Protein (Negative) Urine Glucose (UA) (Negative) g/dL Urine Ketones (NEGATIVE) Urine Occult Blood (Negative) Urine Nitrate (Negative) Urine Bilirubin (NEGATIVE) Urine Urobilinogen (0.2) E.U./dL Ur Leukocyte Esterase (NEGATIVE) Urine RBC (0-5/HPF) Urine WBC (0-5/HPF) Ur Squamous Epith Cells (0-5/HPF) Uric Acid Crystals (None) Urine Bacteria (None) Ur Culture Indicated? U Opiates 300ng/mL cut (Negative) Ur Oxycodone Screen (Negative) Urine Methadone Screen (Negative) Ur Barbiturates Screen (Negative) U Tricyclic Antidepress (Negative) Ur Phencyclidine Scrn (Negative) Ur Amphetamines Screen (Negative) U Methamphetamines Scrn (Negative) Ur MDMA Scrn (Ecstasy) (Negative) U Benzodiazepines Scrn (Negative) Urine Cocaine Screen (Negative) U Marijuana (THC) Screen (Negative) Chlamy pneumoniae PCR (Not Detect) Adenovirus (PCR) (Not Detect) B. pertussis DNA (PCR) (Not Detecte) B.parapertussis DNA PCR (Not Detecte) Coronavirus OC43 (PCR) (Not Detect) Coronavirus HKU1 (PCR) (Not Detect) Coronavirus 229E (PCR) (Not Detect) SARS-CoV-2 (PCR) (Not Detecte) Coronavirus NL63 (PCR) (Not Detect) Human Metapneumovir PCR (Not Detect) Influenza Type A (PCR) (Not Detect) Influenza Type B (PCR) (Not Detect) M. pneumoniae (PCR) (Not Detect) Parainfluenza 1 (PCR) (Not Detect) Parainfluenza 2 (PCR) (Not Detect) Parainfluenza 3 (PCR) (Not Detect) Parainfluenza 4 (PCR) (Not Detect) RSV (PCR) (Not Detect) Entero/Rhino (PCR) (Not Detect) 04/03/23 04/03/23 04/03/23 Range/Units 14:02 14:02 14:45 WBC (4.5-11.0) X10^3/uL RBC (4.0-5.2) X10^6/uL Hgb (12.0-16.0) g/dL Hct (36-46) % MCV (80-100) fL MCH (26-34) PG MCHC (30-36) % RDW (11.6-14.8) % Plt Count (150-400) X10^3/uL Neut % (Auto) (50-75) % Lymph % (Auto) (25-40) % [place] % (Auto) (3-14) % Eos % (Auto) (2-4) % Baso % (Auto) (0-2) % Neut # (Auto) (3834-8892) /uL Lymph # (Auto) (0565-6745) /uL [place] # (Auto) (0-900) /uL Eos # (Auto) (0-450) /uL Baso # (Auto) (0-100) /uL PT (10.1-12.7) SECONDS INR (0.9-1.3) APTT (26-36) SECONDS ABG pH 7.36 (7.35-7.45) ABG pCO2 38.0 (35-45) mmHg ABG pO2 67 L (80-100) mmHg ABG HCO3 21 L (23-27) mmol/L ABG Total CO2 22 L (23-27) mmol/L ABG O2 Saturation 92 L (95-100) % ABG Base Excess -4.0 L (-2-3) mmol/L FiO2 100 Sodium (137-145) mmol/L Potassium (3.4-5.1) mmol/L Chloride (98-107) mmol/L Carbon Dioxide (22-32) mmol/L BUN (7-17) mg/dL Creatinine (0.52-1.04) mg/dL Estimated GFR (>60) mL/min BUN/Creatinine Ratio (6-22) Glucose (70-100) mg/dL Lactate (0.7-2.1) mmol/L Calcium (8.4-10.2) mg/dL Total Bilirubin (0.2-1.3) mg/dL AST (14-36) IU/L ALT (<35) IU/L Alkaline Phosphatase (38-126) U/L Total Creatine Kinase (30-135) U/L Troponin I (0.01-0.034) ng/mL NT-Pro-B Natriuret Pep 170 H (<125) pg/mL Total Protein (6.3-8.2) g/dL Albumin (3.5-5.0) g/dL Globulin (1.7-4.1) g/dL Albumin/Globulin Ratio (1.0-2.8) Lipase (23-300) U/L Procalcitonin (<0.5) ng/mL Prolactin (3.0-18.6) ng/mL Serum , Qual (Negative) Urine Color Urine Appearance Urine pH (4.5-8.0) Ur Specific [place] (1.000-1.035) Urine Protein (Negative) Urine Glucose (UA) (Negative) g/dL Urine Ketones (NEGATIVE) Urine Occult Blood (Negative) Urine Nitrate (Negative) Urine Bilirubin (NEGATIVE) Urine Urobilinogen (0.2) E.U./dL Ur Leukocyte Esterase (NEGATIVE) Urine RBC (0-5/HPF) Urine WBC (0-5/HPF) Ur Squamous Epith Cells (0-5/HPF) Uric Acid Crystals (None) Urine Bacteria (None) Ur Culture Indicated? U Opiates 300ng/mL cut (Negative) Ur Oxycodone Screen (Negative) Urine Methadone Screen (Negative) Ur Barbiturates Screen (Negative) U Tricyclic Antidepress (Negative) Ur Phencyclidine Scrn (Negative) Ur Amphetamines Screen (Negative) U Methamphetamines Scrn (Negative) Ur MDMA Scrn (Ecstasy) (Negative) U Benzodiazepines Scrn (Negative) Urine Cocaine Screen (Negative) U Marijuana (THC) Screen (Negative) Chlamy pneumoniae PCR Not detected (Not Detect) Adenovirus (PCR) Not detected (Not Detect) B. pertussis DNA (PCR) Not detected (Not Detecte) B.parapertussis DNA PCR Not detected (Not Detecte) Coronavirus OC43 (PCR) Not detected (Not Detect) Coronavirus HKU1 (PCR) Not detected (Not Detect) Coronavirus 229E (PCR) Not detected (Not Detect) SARS-CoV-2 (PCR) Not detected (Not Detecte) Coronavirus NL63 (PCR) Not detected (Not Detect) Human Metapneumovir PCR Not detected (Not Detect) Influenza Type A (PCR) Not detected (Not Detect) Influenza Type B (PCR) Not detected (Not Detect) M. pneumoniae (PCR) Not detected (Not Detect) Parainfluenza 1 (PCR) Not detected (Not Detect) Parainfluenza 2 (PCR) Not detected (Not Detect) Parainfluenza 3 (PCR) Not detected (Not Detect) Parainfluenza 4 (PCR) Not detected (Not Detect) RSV (PCR) Not detected (Not Detect) Entero/Rhino (PCR) Not detected (Not Detect) 04/03/23 04/03/23 04/03/23 Range/Units 16:41 18:39 18:39 WBC (4.5-11.0) X10^3/uL RBC (4.0-5.2) X10^6/uL Hgb (12.0-16.0) g/dL Hct (36-46) % MCV (80-100) fL MCH (26-34) PG MCHC (30-36) % RDW (11.6-14.8) % Plt Count (150-400) X10^3/uL Neut % (Auto) (50-75) % Lymph % (Auto) (25-40) % [place] % (Auto) (3-14) % Eos % (Auto) (2-4) % Baso % (Auto) (0-2) % Neut # (Auto) (5661-5711) /uL Lymph # (Auto) (5488-2591) /uL [place] # (Auto) (0-900) /uL Eos # (Auto) (0-450) /uL Baso # (Auto) (0-100) /uL PT (10.1-12.7) SECONDS INR (0.9-1.3) APTT (26-36) SECONDS ABG pH (7.35-7.45) ABG pCO2 (35-45) mmHg ABG pO2 (80-100) mmHg ABG HCO3 (23-27) mmol/L ABG Total CO2 (23-27) mmol/L ABG O2 Saturation (95-100) % ABG Base Excess (-2-3) mmol/L FiO2 Sodium (137-145) mmol/L Potassium (3.4-5.1) mmol/L Chloride (98-107) mmol/L Carbon Dioxide (22-32) mmol/L BUN (7-17) mg/dL Creatinine (0.52-1.04) mg/dL Estimated GFR (>60) mL/min BUN/Creatinine Ratio (6-22) Glucose (70-100) mg/dL Lactate 0.8 (0.7-2.1) mmol/L Calcium (8.4-10.2) mg/dL Total Bilirubin (0.2-1.3) mg/dL AST (14-36) IU/L ALT (<35) IU/L Alkaline Phosphatase (38-126) U/L Total Creatine Kinase (30-135) U/L Troponin I (0.01-0.034) ng/mL NT-Pro-B Natriuret Pep (<125) pg/mL Total Protein (6.3-8.2) g/dL Albumin (3.5-5.0) g/dL Globulin (1.7-4.1) g/dL Albumin/Globulin Ratio (1.0-2.8) Lipase (23-300) U/L Procalcitonin (<0.5) ng/mL Prolactin (3.0-18.6) ng/mL Serum , Qual (Negative) Urine Color Yellow Urine Appearance Cloudy Urine pH 5.0 (4.5-8.0) Ur Specific [place] 1.015 (1.000-1.035) Urine Protein Negative (Negative) Urine Glucose (UA) Negative (Negative) g/dL Urine Ketones Trace H (NEGATIVE) Urine Occult Blood Trace-intact (Negative) Urine Nitrate Negative (Negative) Urine Bilirubin Negative (NEGATIVE) Urine Urobilinogen 0.2 (0.2) E.U./dL Ur Leukocyte Esterase Negative (NEGATIVE) Urine RBC None seen (0-5/HPF) Urine WBC None seen (0-5/HPF) Ur Squamous Epith Cells None seen (0-5/HPF) Uric Acid Crystals Many H (None) Urine Bacteria None seen (None) Ur Culture Indicated? Cult not indicated U Opiates 300ng/mL cut Negative (Negative) Ur Oxycodone Screen Negative (Negative) Urine Methadone Screen Negative (Negative) Ur Barbiturates Screen Negative (Negative) U Tricyclic Antidepress Negative (Negative) Ur Phencyclidine Scrn Negative (Negative) Ur Amphetamines Screen Negative (Negative) U Methamphetamines Scrn Negative (Negative) Ur MDMA Scrn (Ecstasy) Negative (Negative) U Benzodiazepines Scrn Positive H (Negative) Urine Cocaine Screen Negative (Negative) U Marijuana (THC) Screen Positive H (Negative) Chlamy pneumoniae PCR (Not Detect) Adenovirus (PCR) (Not Detect) B. pertussis DNA (PCR) (Not Detecte) B.parapertussis DNA PCR (Not Detecte) Coronavirus OC43 (PCR) (Not Detect) Coronavirus HKU1 (PCR) (Not Detect) Coronavirus 229E (PCR) (Not Detect) SARS-CoV-2 (PCR) (Not Detecte) Coronavirus NL63 (PCR) (Not Detect) Human Metapneumovir PCR (Not Detect) Influenza Type A (PCR) (Not Detect) Influenza Type B (PCR) (Not Detect) M. pneumoniae (PCR) (Not Detect) Parainfluenza 1 (PCR) (Not Detect) Parainfluenza 2 (PCR) (Not Detect) Parainfluenza 3 (PCR) (Not Detect) Parainfluenza 4 (PCR) (Not Detect) RSV (PCR) (Not Detect) Entero/Rhino (PCR) (Not Detect) 04/04/23 04/04/23 Range/Units 07:20 07:20 WBC Cancelled (4.5-11.0) X10^3/uL RBC Cancelled (4.0-5.2) X10^6/uL Hgb Cancelled (12.0-16.0) g/dL Hct Cancelled (36-46) % MCV Cancelled (80-100) fL MCH Cancelled (26-34) PG MCHC Cancelled (30-36) % RDW Cancelled (11.6-14.8) % Plt Count Cancelled (150-400) X10^3/uL Neut % (Auto) Cancelled (50-75) % Lymph % (Auto) Cancelled (25-40) % [place] % (Auto) Cancelled (3-14) % Eos % (Auto) Cancelled (2-4) % Baso % (Auto) Cancelled (0-2) % Neut # (Auto) Cancelled (9569-3532) /uL Lymph # (Auto) Cancelled (7715-8134) /uL [place] # (Auto) Cancelled (0-900) /uL Eos # (Auto) Cancelled (0-450) /uL Baso # (Auto) Cancelled (0-100) /uL PT (10.1-12.7) SECONDS INR (0.9-1.3) APTT (26-36) SECONDS ABG pH (7.35-7.45) ABG pCO2 (35-45) mmHg ABG pO2 (80-100) mmHg ABG HCO3 (23-27) mmol/L ABG Total CO2 (23-27) mmol/L ABG O2 Saturation (95-100) % ABG Base Excess (-2-3) mmol/L FiO2 Sodium Cancelled (137-145) mmol/L Potassium Cancelled (3.4-5.1) mmol/L Chloride Cancelled (98-107) mmol/L Carbon Dioxide Cancelled (22-32) mmol/L BUN Cancelled (7-17) mg/dL Creatinine Cancelled (0.52-1.04) mg/dL Estimated GFR Cancelled (>60) mL/min BUN/Creatinine Ratio Cancelled (6-22) Glucose Cancelled (70-100) mg/dL Lactate (0.7-2.1) mmol/L Calcium Cancelled (8.4-10.2) mg/dL Total Bilirubin (0.2-1.3) mg/dL AST (14-36) IU/L ALT (<35) IU/L Alkaline Phosphatase (38-126) U/L Total Creatine Kinase (30-135) U/L Troponin I (0.01-0.034) ng/mL NT-Pro-B Natriuret Pep (<125) pg/mL Total Protein (6.3-8.2) g/dL Albumin (3.5-5.0) g/dL Globulin (1.7-4.1) g/dL Albumin/Globulin Ratio (1.0-2.8) Lipase (23-300) U/L Procalcitonin (<0.5) ng/mL Prolactin Cancelled (3.0-18.6) ng/mL Serum , Qual (Negative) Urine Color Urine Appearance Urine pH (4.5-8.0) Ur Specific [place] (1.000-1.035) Urine Protein (Negative) Urine Glucose (UA) (Negative) g/dL Urine Ketones (NEGATIVE) Urine Occult Blood (Negative) Urine Nitrate (Negative) Urine Bilirubin (NEGATIVE) Urine Urobilinogen (0.2) E.U./dL Ur Leukocyte Esterase (NEGATIVE) Urine RBC (0-5/HPF) Urine WBC (0-5/HPF) Ur Squamous Epith Cells (0-5/HPF) Uric Acid Crystals (None) Urine Bacteria (None) Ur Culture Indicated? U Opiates 300ng/mL cut (Negative) Ur Oxycodone Screen (Negative) Urine Methadone Screen (Negative) Ur Barbiturates Screen (Negative) U Tricyclic Antidepress (Negative) Ur Phencyclidine Scrn (Negative) Ur Amphetamines Screen (Negative) U Methamphetamines Scrn (Negative) Ur MDMA Scrn (Ecstasy) (Negative) U Benzodiazepines Scrn (Negative) Urine Cocaine Screen (Negative) U Marijuana (THC) Screen (Negative) Chlamy pneumoniae PCR (Not Detect) Adenovirus (PCR) (Not Detect) B. pertussis DNA (PCR) (Not Detecte) B.parapertussis DNA PCR (Not Detecte) Coronavirus OC43 (PCR) (Not Detect) Coronavirus HKU1 (PCR) (Not Detect) Coronavirus 229E (PCR) (Not Detect) SARS-CoV-2 (PCR) (Not Detecte) Coronavirus NL63 (PCR) (Not Detect) Human Metapneumovir PCR (Not Detect) Influenza Type A (PCR) (Not Detect) Influenza Type B (PCR) (Not Detect) M. pneumoniae (PCR) (Not Detect) Parainfluenza 1 (PCR) (Not Detect) Parainfluenza 2 (PCR) (Not Detect) Parainfluenza 3 (PCR) (Not Detect) Parainfluenza 4 (PCR) (Not Detect) RSV (PCR) (Not Detect) Entero/Rhino (PCR) (Not Detect) Point of Care Testing Glucose POC 119 MDM Narrative Medical decision making narrative: Patient 27-year-old female presenting today with postictal and seizure disorder however she is found to be quite hypoxic. She is extremely combative requiring Ativan and restraints initially. X-ray does show bilateral infiltrates. She is requiring 15 L non-rebreather ABG confirms hypoxia with a PO2 67 on the non-rebreather. Concern for underlying pneumonia. She has leukocytosis and a lactic acid. Lactic acid is 6.5 either related to sepsis or seizure. CT angio does not show pulmonary embolism. It does show severely poor defined opacities bilaterally worse centrally pulmonary edema is suspected. Ever atypical infection and COVID pneumonia are also possibilities. BNP does not support fluid overload. Sounds as though she is actually been having respiratory symptoms for a couple of days so I suspect more of a pneumonia. Her respiratory panel is negative. She continues to be restless and combative attempt high-flow nasal cannula which she reports hurts her nose. She is awake alert and responsive but competitive. Head CT is negative for any intracranial hemorrhage. I suspect a continuation of postictal. Mom reports that this is very abnormal behavior for her. She is covered with antibiotics for probable pneumonia. Discussed with mom possible need for intubation if she does not tolerate high-flow. Dr. Lofton, Neurology at Located within [facility] updated patient's symptoms test results this time agrees would benefit from antiseizure medication recommends Keppra 1000 mg twice daily. Unfortunately we do not have any ICU beds. Attempting to transfer patient. Patient signed out to Dr. Ophelia jacinto: Received turned over. Reviewed patient's history and physical exam. Overnight patient has become more alert. She is now alert oriented x3. GCS of 15. She is not postictal. Is not clinically intoxicated. We have been able to wean her off of her high-flow nasal cannula now down to 2-4 L per regular nasal cannula. Her oxygen saturations have been greater than 90%. She is not had a seizure now since arrival here to the ER. She has received Keppra. I did discuss the case with Dr. Junior the tele hospitalist who stated that he did not feel comfortable admitting the patient because the day provider yesterday thought that she needed to be transferred to a place had Neurology. She was kept in the emergency department. She continues to improve although she is still hypoxic. She got up and walked to the bathroom. Was minimally tachypneic but her oxygen saturations did drop into the 80s. This morning the patient's mother came at bedside. The patient would like to go home. We did discuss her symptoms today. I advised that she stay here in the emergency department for further workup because of her hypoxia. We discussed the risks to include repeat seizures, shortness of breath and even . The patient expressed understanding of this. The mother was at bedside for this. Mother states that she will be with the patient today. She was given a dose of antibiotics here in the ER. Will sent home on Keppra and also oral antibiotics. Patient signed Against Medical Advice paperwork. Discharge Plan Departure Patient Disposition: Left Against Medical Advice Clinical Impression: Pneumonia, Seizure-like activity, Hypoxia Activity Restrictions/Additional Instructions: Despite our conversations about your pneumonia and low oxygen saturations you have decided to leave against medical advice. A prescription for antibiotics was sent to [facility]. Your next dose this will be tomorrow. We also need to start you on antiseizure medication. Your next dose of this medication will be this evening. You can return to the emergency department at any point if you would like to continue your treatment. Contact your neurologist in your primary doctor for follow-up. Prescriptions: New levetiracetam [Keppra] 1,000 mg tablet 1,000 mg PO BID Qty: 60 2RF levofloxacin 750 mg tablet 750 mg PO DAILY 4 Days Qty: 4 0RF No Action albuterol sulfate 90 mcg/actuation HFA aerosol inhaler 2 puff INHALATION Q6H PRN silver sulfadiazine [Silvadene] 1 % cream 1 applictn TOP BID PRN (Reason: wound healing) Qty: 25 2RF Rx Instructions: apply a 1.5 mm thickness Stand Alone Forms: Against Medical Advice
--- NOTE | 2023-04-03 14:02 | DI.CT.S_ITS ---
PROCEDURE: CT ANGIO CHEST PE PROTOCOL INDICATIONS: hypoxia TECHNIQUE: After the administration of intravenous contrast, 2 mm thick sections acquired from the pulmonary apices to the posterior costophrenic angles. 3-dimensional maximum intensity projection (MIP) coronal and sagittal reformats were then acquired through the thorax. For radiation dose reduction, the following was used: automated exposure control, adjustment of mA and/or kV according to patient size. COMPARISON: [facility], CT, CT HEAD/BRAIN WO CON, 04/03/2023, 15:41. [facility], CR, XR CHEST 1V, 04/03/2023, 14:02. FINDINGS: Image quality: Limited by bolus timing. Streak artifact can be seen through the upper abdomen. Pulmonary arteries: The bolus of the contrast injection is suboptimal. The main pulmonary artery measures approximately 155 Hounsfield units. Pulmonary artery densities are greater than 250 Hounsfield units are considered to be ideal for evaluation of pulmonary embolism. However, no large or central pulmonary emboli are seen on these images. No pulmonary emboli are seen more distally, although sensitivity for detection of such is limited on this study. Lungs and pleura: Prominent, poorly defined ground-glass opacities can be seen, which are primarily seen centrally and dependently. No pleural effusions or pneumothorax. Central and peripheral airways are patent. Mediastinum: Heart size is normal, without pericardial effusion. No mediastinal or hilar adenopathy. Thoracic aorta is normal in caliber and enhancement. Esophagus is normal in caliber, without hiatal hernia. Bones and chest wall: No suspicious bony lesions. Ribs and thoracic spine appear intact throughout. Thyroid gland demonstrates no significant abnormality. No axillary or supraclavicular adenopathy. Abdomen: Visualized upper abdominal solid organs appear normal in the early arterial phase of enhancement. IMPRESSION: Severe poorly defined opacities can be seen within both lungs. These are worst centrally and dependently. Pulmonary edema is suspected, although differential diagnosis includes prominent atypical infection, including COVID pneumonia. No large or central pulmonary embolism can be seen. Dictated by: Shaji Orellana M.D. on 04/03/2023 at 15:17 Approved by: Shaji Orellana M.D. on 04/03/2023 at 15:19
[2023-04-03] MEDS: SODIUM CHLORIDE 0.9% 1,000 ML 150 ML IV ×2 (14:10→17:13)
[2023-04-03 14:22] LABS: Add Manual Diff / Slide Review NO; Basophils Absolute Auto 100 /uL (0-100); Basophils Percent Auto 0.2 % (0-2); Eosinophils Absolute Auto 0 /uL (0-450); Eosinophils Percent Auto 0.2 % (2-4); Hematocrit 44.1 % (36-46); Hemoglobin 14.9 g/dL (12.0-16.0); Lymphocytes Absolute Auto 1100 /uL (1100-4500); Lymphocytes Percent Auto 4.6 % (25-40); Mean Corpuscular HGB Conc 33.8 % (30-36); Mean Corpuscular Hemoglobin 29.6 PG (26-34); Mean Corpuscular Volume 87.6 fL (80-100); Monocytes Absolute Auto 1200 /uL (0-900); Monocytes Percent Auto 4.8 % (3-14); Neutrophils Absolute Auto 22200 /uL (1500-7000); Neutrophils Percent Auto 90.2 % (50-75); Platelet Count 342 X10^3/uL (150-400); Red Blood Cell Count 5.03 X10^6/uL (4.0-5.2); White Blood Cell Count 24.7 X10^3/uL (4.5-11.0)
[2023-04-03 14:40] LABS: INR 1.2 (0.9-1.3); Prothrombin Time 13.9 SECONDS (10.1-12.7)
[2023-04-03 14:42] LABS: Pregnancy Test Serum,Qual Negative (Negative)
[2023-04-03 14:43] LABS: PTT Partial Thromboplastin Tim 29 SECONDS (26-36)
[2023-04-03 14:46] LABS: Alanine Aminotransferase 30 IU/L (<35); Albumin 4.3 g/dL (3.5-5.0); Albumin Globulin Ratio 1.3 (1.0-2.8); Alkaline Phosphatase 81 U/L (38-126); Aspartate Aminotransferase 27 IU/L (14-36); BUN Creatinine Ratio 19.1 (6-22); Bilirubin Total 0.3 mg/dL (0.2-1.3); Blood Urea Nitrogen 13 mg/dL (7-17); Calcium 8.7 mg/dL (8.4-10.2); Carbon Dioxide 16 mmol/L (22-32); Chloride 104 mmol/L (98-107); Creatine Kinase 162 U/L (30-135); Estimated Glomerular Filt Rate > 60 mL/min (>60); Globulin 3.3 g/dL (1.7-4.1); Glucose 164 mg/dL (70-100); HEMOLYSIS 16 (0-50); Lipase 68 U/L (23-300); Potassium 3.7 mmol/L (3.4-5.1); Sodium 137 mmol/L (137-145); Total Protein 7.6 g/dL (6.3-8.2)
[2023-04-03 14:53] LABS: Lactate (Lactic Acid) 6.5 mmol/L (0.7-2.1); NT-proBNP (BNP-Adult 18+) 170 pg/mL (<125)
[2023-04-03 15:00] LABS: Fractionated Inspired Oxygen 100; HCO3 ABG 21 mmol/L (23-27); Oxygen Saturation ABG 92 % (95-100); PO2 ABG 67 mmHg (80-100); TCO2 ABG 22 mmol/L (23-27); pH ABG 7.36 (7.35-7.45)
[2023-04-03 15:01] LABS: Procalcitonin < 0.03 ng/mL (<0.5); Prolactin 107.4 ng/mL (3.0-18.6)
--- NOTE | 2023-04-03 15:15 | DI.CT.S_ITS ---
PROCEDURE: CT HEAD/BRAIN WO CON INDICATIONS: seizure TECHNIQUE: Noncontrast 4.5 mm thick angled axial sections acquired from the foramen magnum to the vertex, with coronal and sagittal reformats. For radiation dose reduction, the following was used: automated exposure control, adjustment of mA and/or kV according to patient size. COMPARISON: [facility], CR, XR CHEST 1V, 04/03/2023, 14:02. [facility], CT, CT ANGIO CHEST PE PROTOCOL, 04/03/2023, 15:41. FINDINGS: Image quality: This examination is limited by involuntary motion artifact. Mild streak artifact can be seen through the skull base. CSF spaces: Basal cisterns are patent. No extra-axial fluid collections. Ventricles are normal in size and shape. Brain: No midline shift. No intracranial masses or hemorrhage. Young-white matter interface is normal. Skull and face: Calvarium and visualized facial bones are intact, without suspicious lesions. Sinuses: Visualized sinuses and mastoids are clear. IMPRESSION: No significant noncontrast head CT abnormality is identified. Dictated by: Shaji Orellana M.D. on 04/03/2023 at 15:16 Approved by: Shaji Orellana M.D. on 04/03/2023 at 15:16
[2023-04-03 15:21] LABS: Adenovirus Not Detected (Not Detect); B. parapertussis Not Detected (Not Detecte); Bordetella pertussis Not Detected (Not Detecte); Chlamydophila pneumoniae Not Detected (Not Detect); Coronavirus 229E Not Detected (Not Detect); Coronavirus HKU1 Not Detected (Not Detect); Coronavirus NL 63 Not Detected (Not Detect); Coronavirus OC43 Not Detected (Not Detect); Human Metapneumovirus Not Detected (Not Detect); Human Rhinovirus/Enterovirus Not Detected (Not Detect); Influenza A Not Detected (Not Detect); Influenza B Not Detected (Not Detect); Mycoplasma pneumoniae Not Detected (Not Detect); Parainfluenza Virus 1 Not Detected (Not Detect); Parainfluenza Virus 2 Not Detected (Not Detect); Parainfluenza Virus 3 Not Detected (Not Detect); Parainfluenza Virus 4 Not Detected (Not Detect); Respiratory Syncytial Virus Not Detected (Not Detect); SARS- CoV-2 Not Detected (Not Detecte)
[2023-04-03] MEDS: PIPERACILLIN/TAZO 4.5 GM in SODIUM CHLORIDE 0.9% 100 ML IV (15:37)
--- NOTE | 2023-04-03 15:50 | PC.NURSE ---
Myself another nurse transported patient to CT for imaging on 15L non rebreather. Patient tolerated the stretcher to CT. Oxygen saturation 93% in CT, HR 120's. Patient was brought back to ED room [address]
[2023-04-03 16:16] LABS: Reflexed Lactate in 2 Hours Y
--- NOTE | 2023-04-03 16:26 | RT ---
Pt not tolerating lower o2 at this time. MD requesting pt try heated high flow nasal cannula.
[2023-04-03] MEDS: VANCOMYCIN 2,000 MG/400 ML PIGGYBACK 200 MG IV (16:45)
[2023-04-03 17:04] LABS: Lactate 2HR (Lactic Acid Rflx) 0.8 mmol/L (0.7-2.1)
--- NOTE | 2023-04-03 17:19 | PC.NURSE ---
Patient is resting in bed and tolerating high flow NC. Mom at bedside, she is a good historian for her daughter. Patient wakes up intermittently and states she needs water or she will remove the NC. Patient has been able to be redirected at this time.
[2023-04-03] MEDS: LORazepam 2 MG/ML INJ IV (18:40)
[2023-04-03] MEDS: levETIRAcetam 1,000 MG in SODIUM CHLORIDE 0.9% 100 ML 440 MG IV (19:07)
--- NOTE | 2023-04-03 19:22 | PC.NURSE ---
Patient was resting when she suddenly opened her eyes, reached up and pulled her high flow cannula off her face, and grabbed her IV infusing with antibiotics. O2 saturation dropped to I was able to grab her hand and prevent the IV from being removed. Immediately doctor and 3x nurses were at bedside, see KARL for ativan administration per provider. Pt returned to calm status after 5 minutes.
[2023-04-03 19:31] LABS: Appearance Urine UA CLOUDY; Bilirubin Urine UA NEGATIVE (NEGATIVE); Color Urine UA YELLOW; Glucose Urine UA NEGATIVE (Negative); Ketones Urine UA TRACE (NEGATIVE); Leukocyte Esterase Urine UA NEGATIVE (NEGATIVE); Nitrite Urine UA NEGATIVE (Negative); Occult Blood Urine UA TRACE-INTACT (Negative); Protein Urine UA NEGATIVE (Negative); Specific Gravity Urine UA 1.015 (1.000-1.035); Urobilinogen Urine UA 0.2 E.U./dL (0.2)
[2023-04-03 19:35] LABS: UR Morphine/Opiate cutoff 300 Negative (Negative); Ur Creatinine Normal (Normal); Ur Specific Gravity Normal (Normal); Urine Amphetamines Negative (Negative); Urine Barbiturates Negative (Negative); Urine Benzodiazepines Positive (Negative); Urine Cocaine Negative (Negative); Urine MDMA Negative (Negative); Urine Methadone Negative (Negative); Urine Methamphetamines Negative (Negative); Urine Oxycodone Negative (Negative); Urine Phencyclidine Negative (Negative); Urine Tetrahydrocannabinol Positive (Negative); Urine Tricyclic Antidepressant Negative (Negative); Urine pH Normal (Normal)
[2023-04-03 19:42] LABS: Bacteria Urine None Seen; Culture Indicated Urine Cult Not Indicated; RBC Urine None Seen (0-5/HPF); Squamous Epithelial Cell Urine None Seen (0-5/HPF); Uric Acid Crystals Urine Many; WBC Urine None Seen (0-5/HPF)
--- NOTE | 2023-04-03 21:39 | PC.NURSE ---
Pt assisted to bedside commode. Voided 500ml dk yellow urine.
--- NOTE | 2023-04-03 23:12 | PC.NURSE ---
Pt awake, alert. Adamantly requesting to be DC'd so she can go home. Refuses to believe she needs supplemental oxygen.
[2023-04-04] VITALS (13 sets, daily range): BP systolic 120–134; BP diastolic 76–85; PULSE 99–109; RESP 21–35; O2SAT 92–96
--- NOTE | 2023-04-04 00:20 | RT ---
Per Dr. Jacinto, placed pt back on 4L nasal cannula trial to assess tolerance. So far, the pt is tolerating well and maintaining SpO2 WNL. Will cont. to monitor closely.
--- NOTE | 2023-04-04 00:31 | RT ---
Liter flow titrated to 2L, will cont. to monitor.
--- NOTE | 2023-04-04 01:22 | RT ---
Pt did not maintain saturation WNLs on 2L. Currently, the pt is on 3L NC; SpO2 is 93%, HR 105 BPM. Will cont. to monitor.
--- NOTE | 2023-04-04 06:07 | PC.NURSE ---
CONDUCTOR SYMPHONIC ORCHESTRA note: Patient got up to void. Put a pulse oximeter on as she walked to the bathroom and back. She ranged between 81-89% on room air with her heart rate between 106-120
[2023-04-04] MEDS: levETIRAcetam 250 MG TABLET 1000 MG PO (06:37)
[2023-04-04] MEDS: levoFLOXacin 250 MG TABLET 500 MG PO (07:50)
== END 2023-04-04 08:04 | disposition left against medical advice (07) ==
PROVIDERS: Emergency Medicine; Emergency Provider Emergency Medicine
DX: J18.9 Pneumonia, unspecified organism (principal); R09.02 Hypoxemia; G40.909 Epilepsy, unspecified, not intractable, without status epilepticus; Z20.822 Contact with and (suspected) exposure to COVID-19
CPT/HCPCS: 36415; 36600; 70450; 71045; 71275; 80053; 80305; 81001; 82550; 82805; 83605; 83690; 83880; 84145; 84146; 84484; 84703; 85025; 85610; 85730; 87040; 87633; 96365; 96366; 96367; 96375; 96376; 99285; 99291; 99292; J1953; J2060; J2543

== ENCOUNTER → 2023-04-19 13:55 | Outpatient (CLI) | payer OTHER, SELFPAY ==
--- NOTE | 2023-04-19 13:56 | DI.RAD.S_ITS ---
PROCEDURE: XR LUMBAR SPINE 2-3V INDICATIONS: Back pain TECHNIQUE: 3 views of the lumbar spine were acquired. COMPARISON: None. FINDINGS: Bones: 5 [id number] vertebrae are present. There is normal bony alignment. No vertebral body compression fractures. No suspicious bony lesions. Soft tissues: Overlying bowel gas pattern is normal. No suspicious soft tissue calcifications. IMPRESSION: Unremarkable lumbar spine radiographs Approved by: Danial La M.D. on 04/19/2023 at 20:33
--- NOTE | 2023-04-19 13:56 | DI.RAD.S_ITS ---
PROCEDURE: XR SACRUM COCCYX MIN 2V INDICATIONS: Back pain TECHNIQUE: 3 views of the sacrum and coccyx acquired. COMPARISON: None. FINDINGS: Bones: No fractures or dislocations. No suspicious bony lesions. Soft tissues: Visualized bowel gas pattern is normal. No suspicious soft tissue densities. IMPRESSION: Unremarkable sacral coccygeal radiographs Approved by: Danial La M.D. on 04/19/2023 at 20:33
--- NOTE | 2023-04-19 13:56 | DI.RAD.S_ITS ---
PROCEDURE: XR HIP W PEL IF DONE TAMELA MIN 4V INDICATIONS: Hip pain TECHNIQUE: AP pelvis with lateral view(s) of the bilateral hip(s). COMPARISON: None. FINDINGS: Bones: No fractures or dislocations. Pelvic ring appears intact. No suspicious bony lesions. Soft tissues: The visualized bowel gas pattern is normal. No suspicious soft tissue calcifications. IMPRESSION: Normal pelvis and bilateral hip radiographs Approved by: Danial La M.D. on 04/19/2023 at 20:34
== END ==
PROVIDERS: Referring Provider Nurse Practitioner Family; Visit Provider Nurse Practitioner Family
DX: M54.9 Dorsalgia, unspecified (principal)
CPT/HCPCS: 72100; 72220; 73522

== ENCOUNTER → 2023-07-10 16:08 | Outpatient (CLI) | payer OTHER, MEDICAID, SELFPAY | PROVIDERS: Visit Provider Physician Assistant | DX: R30.0 Dysuria (principal) | CPT/HCPCS: 81002; 87086 ==

== ENCOUNTER → 2023-08-24 15:03 | Outpatient (CLI) | payer OTHER, MEDICAID, SELFPAY ==
[2023-08-24 18:05] LABS: Prolactin 23.3 ng/mL (3.0-18.6)
[2023-08-24 18:12] LABS: Thyroid Stimulating Hormone 0.833 uIU/mL (0.47-4.68)
[2023-08-28 15:11] LABS: HIV 1 & 2 Ab/Ag 4th Gen Combo NEGATIVE (NEGATIVE); Hep C Virus Ab w/Reflex Quant NEGATIVE s/c (NEGATIVE)
== END ==
PROVIDERS: PCP Family Medicine; Referring Provider Family Medicine; Visit Provider Family Medicine
DX: Z11.4 Encounter for screening for human immunodeficiency virus [HIV] (principal); Z11.59 Encounter for screening for other viral diseases; R56.9 Unspecified convulsions; E22.1 Hyperprolactinemia
CPT/HCPCS: 36415; 84146; 84443; 86803; 87389

== ENCOUNTER 2023-09-16 07:14 | Emergency (ER) | payer OTHER, MEDICAID, SELFPAY ==
[2023-09-16 07:24] VITALS: BP 150/99; PULSE 81; RESP 16; TEMP 36.9; O2SAT 100; BMI 41.1
[2023-09-16] MEDS: LIDOCAINE 1% 20 ML INJ (07:34)
[2023-09-16] MEDS: TET,DIPH,PERTUSS(ACELL),VAC/PF 0.5 ML SYRINGE IM (07:35)
--- NOTE | 2023-09-16 07:54 | ED_ITS ---
HPI - Wound/Laceration General Chief Complaint: Wound/Laceration Stated Complaint: left ear injury Time Seen by Provider: 09/16/23 07:26 History of Present Illness HPI narrative: Patient here for laceration to the left upper earlobe/external ear. Tetanus needs to be updated. has history hysterectomy. Patient cut her left ear on a air conditioning metal fragment. She was getting out of bed to go to the bathroom and also walk her dog. Denies any other injuries. Bleeding is contr olled. Related Data Previous Rx's Medication Instructions Recorded fluticasone 100 mcg-salmeterol 50 1 inh inhalation BID #60 ea 07/31/23 mcg/dose blistr powdr for inhalation doxycycline monohydrate 100 mg 100 mg PO BID #10 caps 09/16/23 capsule levetiracetam 1,000 mg tablet 1,000 mg PO BID #60 tabs 09/25/23 (Keppra) Allergies Allergy/AdvReac Type Severity Reaction Status Date / Time cefuroxime [From Ceftin] Allergy Intermediate unknown, Verified 09/23/23 15:58 happened as a small child Sulfa (Sulfonamide AdvReac Mild GI upset Verified 09/23/23 15:58 Antibiotics) Review of Systems Review of Systems Narrative: GENERAL: negative chills, fatigue, malaise, fever, sweats. HEENT: negative sinus pain, ear pain, sore throat, positive ear pain MUSCULOSKELETAL: negative muscle or bony pain SKIN: negative rash, skin lesions, positive skin injury NEUROLOGIC: negative weakness, numbness ROS Unobtainable: All systems reviewed & are unremarkable except as noted in HPI and below Patient History Medical History Acne Asthma PTSD (post-traumatic stress disorder) Depression Seizures Migraines Headache ADHD Foot pain Fibromyalgia Chronic back pain Carpal tunnel syndrome Ankle pain Chicken pox Painful menstrual periods Ovarian cyst Endometriosis Goltz syndrome Focal dermal hypoplasia Second degree burn Surgical History Anesthesia History of tonsillectomy and adenoidectomy (~1997) History of hysterectomy (~2013) Family History Father No problems noted. Social History Smoking Status: Former smoker Smoking Status: Former smoker Exam Narrative Exam Narrative: GENERAL: in no distress, not toxic not dyspneic HEAD: Normocephalic. EYES: Pupils equal round ENT: Mucous membranes moist. Exam shows left ear. There is a flap shaped laceration 1 cm in total length at the top of the ear. No cartilage injury seen. No changes in hearing. Coarsely intact. Bleeding is controlled. Based visualized. NEURO: AOx4. SKIN: Warm and dry PSYCH: Not anxious, is cooperative Initial Vital Signs Initial Vital Signs: Vital Signs Temperature 98.5 F 09/16/23 07:24 Pulse Rate 81 09/16/23 07:24 Respiratory Rate 16 09/16/23 07:24 Blood Pressure 150/99 H 09/16/23 07:24 Pulse Oximetry 100 09/16/23 07:24 Oxygen Delivery Method Room Air 09/16/23 07:24 Procedures Laceration Repair Laceration 1: Time of procedure: 08:03 Site: other (Left ear) Side (If applicable): left Size (cm): 1 Description: flap Depth: simple, single layer Local Anesthetic: lidocaine 1% Amount of anesthesia used (mL): 0.5 Pre-repair: wound explored, irrigated extensively, deep structures intact and cleansed with chlorhexadine Skin layer closed with: nylon Skin layer suture size: 5-0 Number of sutures: 3 Technique: simple, interrupted Course Orders Ordered: Discontinued Medications Bacitracin (Bacitracin Oint 0.9 Gm Pckt) 1 applic TOP NOW ONE Stop: 09/16/23 07:39 Last Admin: 09/16/23 08:07 Dose: 1 applic Documented By: RLS Diphtheria/Tetanus/Acell Pertussis (Tet,Diph,Pertuss(Acell),Vac/Pf 0.5 Ml Syringe) 0.5 ml IM .ONCE ONE Stop: 09/16/23 07:30 Last Admin: 09/16/23 07:35 Dose: 0.5 ml Documented By: CTS Doxycycline Hyclate (Doxycycline Hyclate 100 Mg Tablet) 100 mg PO NOW ONE Stop: 09/16/23 07:55 Last Admin: 09/16/23 08:07 Dose: 100 mg Documented By: RLS Lidocaine HCl (Lidocaine 1% 20 Ml) 20 ml INJ INTRA-OP ONE Stop: 09/16/23 07:30 Last Admin: 09/16/23 07:34 Dose: 4 ml Documented By: CTS Vital Signs Vital signs: Vital Signs - 8 hr 09/16/23 07:24 Temperature 98.5 F Pulse Rate 81 Respiratory Rate 16 Blood Pressure 150/99 H Pulse Oximetry 100 Oxygen Delivery Method Room Air MDM - Wound/Laceration Differential Diagnosis Differential diagnosis: Likely laceration and avulsion of skin MDM Narrative Medical decision making narrative: After history and exam Tdap doxycycline wound repair MDM CC: Ear laceration Complicating co-morbidities: None Data collected from: Patient Medical records reviewed: No recent visit for this complaint Differential considered: Includes but not limited to see above Exam documented above, pertinent findings include: 1 cm laceration Treatments: Tdap bacitracin doxycycline Re-evaluations: Patient tolerated suturing very well. Hemostasis obtained. Pain controlled. Return precautions reviewed with patient. Wound care instructions provided. Otolaryngology referral given. She desires discharge home Discussion: Appropriate for discharge home. Patient tolerated suturing very well. Hemostasis obtained. Referral for otolaryngology obtained. Prescription antibiotic for prophylaxis provided. Not toxic at discharge. Return precautions reviewed. She desires discharge home Diagnosis: Ear laceration Discharge Plan Departure Patient Disposition: Home Clinical Impression: Laceration of ear Qualifiers: Encounter type: initial encounter Laterality: left Qualified Code(s): S01.312A - Laceration without foreign body of left ear, initial encounter Instructions: How to Care for a Laceration After Repair, DI for Laceration Repair Activity Restrictions/Additional Instructions: Please call provided your nose and throat clinic on Sunday for office appointment in 5-7 days to have 3 stitches removed. Please clean wound daily with warm soap and water and apply thin layer of topical antibiotic. You may shower. But no submersion head/ear under water. Return if worse if any questions or concerns. Prescription antibiotic, doxycycline, has been provided for you to prevent infection. Prescriptions: New doxycycline monohydrate 100 mg capsule 100 mg PO BID Qty: 10 0RF No Action fluticasone propion-salmeterol 100-50 mcg/dose blister with device 1 inh inhalation BID Qty: 60 2RF levetiracetam [Keppra] 1,000 mg tablet 1,000 mg PO BID Qty: 60 2RF Referrals: Igor Baltazar MD [Primary Care Provider] - Maurice Dawson MD [Physician] - Stand Alone Forms: Patient Portal/API
[2023-09-16] MEDS: BACITRACIN OINT 0.9 GM PCKT 1 APPLIC TOP (08:07)
[2023-09-16] MEDS: DOXYCYCLINE HYCLATE 100 MG TABLET PO (08:07)
== END 2023-09-16 08:15 | disposition home or self-care (01) ==
PROVIDERS: Emergency Provider Emergency Medicine; PCP Family Medicine
DX: S01.312A Laceration without foreign body of left ear, initial encounter (principal); W26.8XXA Contact with other sharp object(s), not elsewhere classified, initial encounter; Z23 Encounter for immunization
CPT/HCPCS: 12011; 90471; 99283; 99284; 90715

== ENCOUNTER → 2023-09-18 12:35 | Outpatient (CLI) | payer OTHER, MEDICAID, SELFPAY ==
--- NOTE | 2023-09-18 12:37 | DI.MRI.S_ITS ---
PROCEDURE: MR BRAIN (PITUITARY) WWO CON INDICATIONS: seizure disorder/abnormal labs TECHNIQUE: Noncontrast sagittal and axial FLAIR, axial gradient echo, axial diffusion and ADC through the brain. Thin-slice sagittal and coronal T1 spin echo, coronal T2 fast spin echo through the pituitary. After the administration contrast, optional dynamic coronal T1 spin echo, thin-slice coronal and sagittal T1 spin echo images through the pituitary fossa; axial and coronal and sagittal T1 spin echo with fat saturation through the brain. COMPARISON: None. FINDINGS: Image quality: Excellent. Pituitary Gland: The pituitary gland demonstrates normal signal and bulk. On the postcontrast imaging, no masses or abnormally enhancing areas are seen. The pituitary stalk and infundibulum have an unremarkable appearance. A normal appearing pituitary bright spot is seen posteriorly on the precontrast sagittal T1-weighted images. The optic chiasm and the ventral forebrain have an unremarkable appearance. CSF Spaces: Ventricles are normal in size and shape. Basal cisterns are patent. No extra-axial fluid collections. Brain: No intracranial bleeds or mass effects. No abnormal intracranial enhancement. Young-white matter interface is intact. Diffusion weighted images demonstrate no acute ischemic insults. Brainstem is normal. Normal intravascular flow voids are present. In this patient with this given history, scrutiny is given to the hippocampal formations. The hippocampi demonstrate a normal, symmetric appearance. Skull and face: Calvarial marrow is normal in signal. Orbits appear normal. Sinuses: Sinuses and mastoids are clear. IMPRESSION: Normal pituitary gland, without masses or areas of abnormal enhancement seen. A cause of seizures is not identified. Dictated by: Shaji Orellana M.D. on 09/18/2023 at 15:10 Approved by: Shaji Orellana M.D. on 09/18/2023 at 15:11
== END ==
PROVIDERS: PCP Family Medicine; Referring Provider Family Medicine; Visit Provider Family Medicine
DX: E22.1 Hyperprolactinemia (principal); R56.9 Unspecified convulsions
CPT/HCPCS: 70553; A9579

== ENCOUNTER → 2023-12-04 17:01 | Outpatient (CLI) | payer OTHER, MEDICAID, SELFPAY ==
[2023-12-04 18:16] LABS: Add Manual Diff / Slide Review NO; Basophils Absolute Auto 100 /uL (0-100); Basophils Percent Auto 0.6 % (0-2); Eosinophils Absolute Auto 400 /uL (0-450); Eosinophils Percent Auto 3.6 % (2-4); Hematocrit 41.2 % (36-46); Hemoglobin 13.9 g/dL (12.0-16.0); Lymphocytes Absolute Auto 3200 /uL (1100-4500); Lymphocytes Percent Auto 29.3 % (25-40); Mean Corpuscular HGB Conc 33.8 % (30-36); Mean Corpuscular Hemoglobin 29.8 PG (26-34); Monocytes Absolute Auto 700 /uL (0-900); Monocytes Percent Auto 6.3 % (3-14); Neutrophils Absolute Auto 6600 /uL (1500-7000); Neutrophils Percent Auto 60.2 % (50-75); Platelet Count 288 X10^3/uL (150-400); Red Blood Cell Count 4.68 X10^6/uL (4.0-5.2); Red Cell Distribution Width 12.8 % (11.6-14.8)
[2023-12-04 18:39] LABS: Alanine Aminotransferase 22 IU/L (<35); Albumin 4.4 g/dL (3.5-5.0); Albumin Globulin Ratio 1.3 (1.0-2.8); Alkaline Phosphatase 58 U/L (38-126); Aspartate Aminotransferase 21 IU/L (14-36); BUN Creatinine Ratio 26.3 (6-22); Bilirubin Total 0.4 mg/dL (0.2-1.3); Blood Urea Nitrogen 15 mg/dL (7-17); Calcium 9.3 mg/dL (8.4-10.2); Carbon Dioxide 26 mmol/L (22-32); Chloride 105 mmol/L (98-107); Estimated Glomerular Filt Rate > 60 mL/min (>60); Globulin 3.5 g/dL (1.7-4.1); Glucose 86 mg/dL (70-100); HEMOLYSIS < 15 (0-50); Potassium 3.5 mmol/L (3.4-5.1); Sodium 137 mmol/L (137-145); Total Protein 7.9 g/dL (6.3-8.2)
[2023-12-04 18:41] LABS: Hemoglobin A1C% w Est Avg Glu 4.8 % (4.0-6.0)
[2023-12-04 18:57] LABS: Vitamin D 25 Hydroxy (D3) 70.4 ng/mL (30.0-100.0)
== END ==
PROVIDERS: PCP Family Medicine; Referring Provider Family Medicine; Visit Provider Family Medicine
DX: Z86.39 Personal history of other endocrine, nutritional and metabolic disease (principal); D64.9 Anemia, unspecified; E78.5 Hyperlipidemia, unspecified; E87.8 Other disorders of electrolyte and fluid balance, not elsewhere classified; E72.51 Non-ketotic hyperglycinemia
CPT/HCPCS: 36415; 80053; 82306; 83036; 85025

== ENCOUNTER → 2023-12-12 17:45 | Outpatient (CLI) | payer OTHER, MEDICAID, SELFPAY ==
--- NOTE | 2023-12-12 17:46 | DI.RAD.S_ITS ---
PROCEDURE: XR CHEST 2V INDICATIONS: Chest congestion TECHNIQUE: 2 views of the chest were acquired. COMPARISON: [facility], CR, XR CHEST 1V, 04/03/2023, 14:02. FINDINGS: Surgical changes and devices: None. Lungs and pleura: Lungs are clear. No pleural effusions or pneumothorax. Mediastinum: Mediastinal contours are normal. Heart size is normal. Bones and chest wall: No suspicious bony abnormalities. Soft tissues appear unremarkable. IMPRESSION: No acute cardiopulmonary pathology. Dictated by: Murali Blood M.D. on 12/12/2023 at 18:18 Approved by: Murali Blood M.D. on 12/12/2023 at 18:18
== END ==
PROVIDERS: PCP Family Medicine; Referring Provider Nurse Practitioner Family; Visit Provider Nurse Practitioner Family
DX: R09.89 Other specified symptoms and signs involving the circulatory and respiratory systems (principal)
CPT/HCPCS: 71046

== ENCOUNTER 2023-12-12 18:15 | Emergency (ER) | payer OTHER, MEDICAID, SELFPAY ==
[2023-12-12 18:20] VITALS: BP 142/96; PULSE 63; RESP 18; TEMP 36.8; O2SAT 97; BMI 39.4
--- NOTE | 2023-12-12 18:55 | PC.NURSE ---
Patient is here for chest discomfort and fevers after having sinus infections for the last 10-12 days. about 7-8 days ago she said her sinus discomfort moved to her chest and she is coughing. She reports feeling febrile but has not has taken her temp. She also states a history of febril seizures and does not take apap or ibuprophen to treat her reported fevers. she does report nausea with some vomiting 2 days ago.
[2023-12-12] MEDS: levETIRAcetam 250 MG TABLET 1000 MG PO (19:06)
[2023-12-12] MEDS: ONDANSETRON 4 MG ODT SL (19:06)
--- NOTE | 2023-12-12 20:03 | ED.GENADULT ---
HPI - General Adult General Chief complaint: Upper Respiratory Symptoms Stated complaint: thinks has pnuemonia, fever Time Seen by Provider: 12/12/23 18:30 Source: patient Mode of arrival: Ambulatory History of Present Illness HPI narrative: Patient is a 28-year-old female. Has a history of seizures. Is here for evaluation of what she thinks is a sinus infection potentially progressing to pneumonia. She went to the walk-in clinic. Had an x-ray. States she has been having hot and cold flashes. Has not been able to take her seizure medications. States she has a history of febrile seizures. Has been coughing up green phlegm. Related Data Previous Rx's Medication Instructions Recorded levetiracetam 1,000 mg tablet 1,000 mg PO BID #60 tabs 09/25/23 (Keppra) fluticasone propionate 115 2 puff inhalation BID #12 grams 10/15/23 mcg-salmeterol 21 mcg/actuation HFA inhaler ondansetron 4 mg disintegrating 4 mg PO Q6H PRN nausea and 12/12/23 tablet vomiting #10 tabs Allergies Allergy/AdvReac Type Severity Reaction Status Date / Time cefuroxime [From Ceftin] Allergy Intermediate unknown, Verified 12/04/23 16:00 happened as a small child Sulfa (Sulfonamide AdvReac Mild GI upset Verified 12/04/23 16:00 Antibiotics) Review of Systems Constitutional Constitutional: Reports system reviewed and no additional complaints, except as documented Cardiovascular Cardiovascular: Reports system reviewed and no additional complaints, except as documented Respiratory Respiratory: Reports system reviewed and no additional complaints, except as documented Neurologic Neurologic: Reports system reviewed and no additional complaints, except as documented Patient History Medical History Acne Asthma PTSD (post-traumatic stress disorder) Depression Seizures Migraines Headache ADHD Foot pain Fibromyalgia Chronic back pain Carpal tunnel syndrome Ankle pain Chicken pox Painful menstrual periods Ovarian cyst Endometriosis Goltz syndrome Focal dermal hypoplasia Second degree burn Surgical History Anesthesia History of tonsillectomy and adenoidectomy (~1997) History of hysterectomy (~2013) Family History Father No problems noted. Social History Smoking Status: Former smoker Smoking Status: Former smoker alcohol intake frequency: other Substance Use Type: marijuana Exam Initial Vital Signs Initial Vital Signs: Vital Signs Temperature 98.3 F 12/12/23 18:20 Pulse Rate 63 12/12/23 18:20 Respiratory Rate 18 12/12/23 18:20 Blood Pressure 142/96 H 12/12/23 18:20 Pulse Oximetry 97 12/12/23 18:20 Oxygen Delivery Method Room Air 12/12/23 18:20 HENMT Head: normal to inspection Resp Effort & Inspection: normal respiratory effort Auscultation: clear to auscultation bilaterally Cardio Rate: regular rate Rhythm: regular rhythm Neuro General: patient alert, patient awake and moves all extremities Course Orders Ordered: Discontinued Medications Levetiracetam (Levetiracetam 250 Mg Tablet) 1,000 mg PO NOW ONE Stop: 12/12/23 18:32 Last Admin: 12/12/23 19:06 Dose: 1,000 mg Documented By: MARCIE Levetiracetam (Levetiracetam 250 Mg Tablet) 1,000 mg PO NOW ONE Stop: 12/12/23 19:10 Last Admin: 12/12/23 19:12 Dose: Not Given Documented By: MARCIE Ondansetron HCl (Ondansetron 4 Mg Odt) 4 mg SL NOW ONE Stop: 12/12/23 19:01 Last Admin: 12/12/23 19:06 Dose: 4 mg Documented By: MARCIE Ondansetron HCl (Ondansetron 4 Mg Odt Prepack) 1 bottle MISC DIRECTED ONE Stop: 12/12/23 20:04 Last Admin: 12/12/23 20:11 Dose: 1 bottle Documented By: AVINASH Vital Signs Vital signs: Vital Signs - 8 hr 12/12/23 18:20 12/12/23 20:18 Temperature 98.3 F Pulse Rate 63 69 Respiratory Rate 18 14 Blood Pressure 142/96 H 143/97 H Pulse Oximetry 97 96 Oxygen Delivery Method Room Air Room Air Medical Decision Making Medical Records Medical records reviewed: Yes I reviewed the patient's medical records. MDM Narrative Medical decision making narrative: I did review the chest x-ray from earlier today. There was no signs of any pneumonia. She was afebrile. Not tachycardic. Not hypoxic. Lungs are clear. No indication for antibiotics. She was able to tolerate a dose of her Keppra here in the ER. Was sent home with a prepack of nausea medication. No indication for admission to the hospital. Discharge Plan Departure Patient Disposition: Home Clinical Impression: Upper respiratory infection Instructions: DI for Viral Upper Respiratory Infection -- Adult Activity Restrictions/Additional Instructions: Continue to take all of your medications as directed. You can take Tylenol and ibuprofen for any fevers or body aches or chills. You can use the nausea medication as needed. Contact your primary doctor for a follow-up. Prescriptions: New ondansetron 4 mg tablet,disintegrating 4 mg PO Q6H PRN (Reason: nausea and vomiting) Qty: 10 0RF No Action levetiracetam [Keppra] 1,000 mg tablet 1,000 mg PO BID Qty: 60 2RF fluticasone propion-salmeterol 115-21 mcg/actuation HFA aerosol inhaler 2 puff inhalation BID Qty: 12 3RF Rx Instructions: administer with spacer Referrals: Igor Baltazar MD [Primary Care Provider] - Stand Alone Forms: Patient Portal/API
[2023-12-12] MEDS: ONDANSETRON 4 MG ODT PREPACK 1 BOTTLE MISC (20:11)
[2023-12-12 20:18] VITALS: BP 143/97; PULSE 69; RESP 14; O2SAT 96
== END 2023-12-12 20:21 | disposition home or self-care (01) ==
PROVIDERS: Emergency Provider Emergency Medicine; PCP Family Medicine
DX: J06.9 Acute upper respiratory infection, unspecified (principal); Z87.891 Personal history of nicotine dependence; R09.89 Other specified symptoms and signs involving the circulatory and respiratory systems
CPT/HCPCS: 71046; 99283

== ENCOUNTER 2024-08-24 02:10 | Emergency (ER) | payer OTHER, MEDICAID, SELFPAY ==
--- NOTE | 2024-08-24 02:09 | ED_ITS ---
HPI - General Adult General Stated complaint: fit 4 residential Time Seen by Provider: 08/24/24 02:16 History of Present Illness HPI narrative: Patient is a 28-year-old female with history of asthma, seizures, fibromyalgia, comes into the ED via police due to the fact that patient is to be incarcerated. Patient stating that earlier today she did fall, scraped her knee, complaining of diffuse body pain however patient states that she does have a history of fibromyalgia. She states that she is due for her antiseizure medications today. Patient was able to stand bear weight ambulate unassisted here in the emergency department, states that she did have her tetanus shot updated. She has not complaining of any symptoms such as headache visual disturbances chest pain shortness breath fever chills nausea vomiting abdominal pain or any other GI/ symptoms. Not On any blood thinners. No head strike no LOC. patient does admit to drinking alcohol today, she states that this all started because she got into an alleged verbal altercation with somebody at the hotel/motel that she was [place] at. Review of records show that patient does take Keppra for history of seizure disorder, in a review of records show that patient takes 1 g Keppra b.i.d., will administer her dose of Keppra here as she is due for this. Related Data Previous Rx's Medication Instructions Recorded levetiracetam 1,000 mg tablet 1,000 mg PO BID #60 tabs 09/25/23 (Keppra) fluticasone propionate 115 2 puff inhalation BID #12 grams 10/15/23 mcg-salmeterol 21 mcg/actuation HFA inhaler ondansetron 4 mg disintegrating 4 mg PO Q6H PRN nausea and 12/12/23 tablet vomiting #10 tabs albuterol sulfate 90 mcg/actuation 2 puff inhalation Q4-6H PRN 12/14/23 aerosol inhaler shortness of breath or wheezing #8.5 grams fluticasone propionate 50 1 spray intranasal BID #16 grams 12/14/23 mcg/actuation nasal spray,suspension (Flonase Allergy Relief) loratadine 10 mg tablet (Claritin) 10 mg PO DAILY #30 tabs 12/14/23 Allergies Allergy/AdvReac Type Severity Reaction Status Date / Time cefuroxime [From Ceftin] Allergy Intermediate unknown, Verified 12/04/23 16:00 happened as a small child Sulfa (Sulfonamide AdvReac Mild GI upset Verified 12/04/23 16:00 Antibiotics) Review of Systems Review of Systems Narrative: General: Fit for residential, Denies fever, chills, weight loss HEENT: Denies headache, eye drainage, eye irritation, head trauma, sore throat, voice change Cardiovascular: Denies any chest pain, palpitations, shortness of breath, tachycardia Respiratory: Denies any shortness of breath, cough, wheeze, stridor GI/: Denies any abdominal pain, nausea, vomiting, diarrhea, bright red blood per rectum, melanotic stools, urinary frequency, urinary retention, dysuria, hematuria MSK: Right knee pain, abrasion to right knee Skin: Denies any rashes, lesions, discoloration Neuro: Denies any headache, lightheadedness, dizziness, fainting, weakness Psych: Denies SI/HI Patient History Medical History Acne Asthma PTSD (post-traumatic stress disorder) Depression Seizures Migraines Headache ADHD Foot pain Fibromyalgia Chronic back pain Carpal tunnel syndrome Ankle pain Chicken pox Painful menstrual periods Ovarian cyst Endometriosis Goltz syndrome Focal dermal hypoplasia Second degree burn Surgical History Anesthesia History of tonsillectomy and adenoidectomy (~1997) History of hysterectomy (~2013) Family History Father No problems noted. Social History Smoking Status: Former smoker Exam Narrative Exam Narrative: General: Cooperative, comfortable, well-developed, not in acute distress HEENT: Normocephalic, atraumatic, PERRLA, normal sclera, eyelids normal, Neck: Active full range of motion, atraumatic Chest: Normal to inspection, negative crepitus, no overlying erythema ecchymosis Respiratory: Normal respiratory effort, not in acute respiratory distress, clear to auscultation bilaterally negative cough, wheeze, tachypnea, rhonchi, rales Cardiology: Regular rate rhythm negative gallop, murmur, rubs GI/: Normal to inspection, soft, nonrigid, no tenderness to palpation, exam deferred MSK: Full range of active range of motion of all 4 extremities, abrasion noted to the right knee, however neurovascularly intact, able to stand bear weight ambulate unassisted, no gross deformities, normal active passive range of motion of bilateral lower extremities. Ecchymosis noted to the lateral aspect of the right thigh, however no crepitus, Skin: No rashes lesions noted Neuro: Alert awake oriented x3, moves all 4 extremities spontaneously, cranial nerves intact, able to answer all questions appropriately follows commands appropriately Psych: Cooperative, negative suicidal or homicidal ideations Medical Decision Making Differential Diagnosis Differential Diagnosis: Intoxication, fit for residential, muscle contusion, abrasion, MDM Narrative Medical decision making narrative: 28-year-old female with a history of asthma and seizures presents with police for medical clearance for incarceration. Patient was in an alleged verbal altercation with somebody in which the police were called. States that during that time she did have mechanical trip and fall injuring her right leg, she denies any other injuries denies head strike not on any blood thinners. On physical exam noted abrasion to the right knee patient up-to-date on tetanus. She also states that she is due for her antiseizure medication which is Keppra. Verify dosage through review of records patient takes 1000 mg Keppra b.i.d. she has not complaining of any other symptoms such as headache visual disturbances chest pain shortness breath fever chills nausea vomiting abdominal pain or any other GI/ stone. Patient does admit to drinking alcohol today as well as smoking marijuana but denies any other drugs. Patient will be given her medication here and will be fit for residential Discharge Plan Departure Patient Disposition: Home Clinical Impression: Abrasion of knee, Contusion of right thigh, initial encounter Activity Restrictions/Additional Instructions: Patient is medically cleared and fit for residential at this time Please read the discharge instructions sheet carefully and bring all papers to all doctor follow-up visits, as it may contain information that your doctor may want to see. Disease processes change and evolve, if your symptoms worsen or if you develop any new symptoms that are concerning to you please return for evaluation. Your evaluation today does not show any evidence of any life- threatening/serious illnesses requiring admission to the hospital or surgery. Please follow-up with your doctor for re-evaluation in approximately 1 day. Seek immediate medical attention for any worrisome symptoms. *If you do not have a primary care provider please contact the [facility] Resource line at [phone]. They will ask some questions about your medical history and help get you set up with a doctor in the community. Prescriptions: No Action levetiracetam [Keppra] 1,000 mg tablet 1,000 mg PO BID Qty: 60 2RF fluticasone propion-salmeterol 115-21 mcg/actuation HFA aerosol inhaler 2 puff inhalation BID Qty: 12 3RF Rx Instructions: administer with spacer loratadine [Claritin] 10 mg tablet 10 mg PO DAILY Qty: 30 3RF fluticasone propionate [Flonase Allergy Relief] 50 mcg/actuation spray,suspension 1 spray intranasal BID Qty: 16 3RF Rx Instructions: administer into each nostril albuterol sulfate 90 mcg/actuation HFA aerosol inhaler 2 puff inhalation Q4-6H PRN (Reason: shortness of breath or wheezing) Qty: 8.5 3RF ondansetron 4 mg tablet,disintegrating 4 mg PO Q6H PRN (Reason: nausea and vomiting) Qty: 10 0RF Referrals: Igor Baltazar MD [Primary Care Provider] - Stand Alone Forms: Patient Portal/API/Survey
[2024-08-24 02:22] VITALS: BP 169/109; PULSE 105; RESP 16; TEMP 36.5; O2SAT 99; BMI 42.9
[2024-08-24] MEDS: levETIRAcetam 250 MG TABLET 1000 MG PO (02:23)
== END 2024-08-24 02:29 | disposition home or self-care (01) ==
PROVIDERS: Emergency Provider Student in an Organized Health Care Education/Training Program; PCP Family Medicine
DX: Z00.8 Encounter for other general examination (principal); S80.211A Abrasion, right knee, initial encounter; S70.11XA Contusion of right thigh, initial encounter; W18.30XA Fall on same level, unspecified, initial encounter; G40.909 Epilepsy, unspecified, not intractable, without status epilepticus; F10.129 Alcohol abuse with intoxication, unspecified
CPT/HCPCS: 99283